=== PATIENT | male | born 1945 | race Caucasian/White ===

== ENCOUNTER 2017-06-17 14:45 | Inpatient (IN) | payer MEDICARE, BC ==
--- NOTE | 2017-06-17 14:54 | EDM.PDOC ---
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 Probable concomitant mild pulmonary hypertension and centralized CHF with mild to moderate left pleural effusion. No pneumothorax. Mild prominence of the proximal aortic arch and mild aortic valve calcification. Telephone consultation at 16:58 hours with the radiology department at [facility] with preliminary verbal report of CTA of the chest using PE protocol. No evidence of PE, however small bilateral pleural effusions, diffuse pulmonary infiltrates, etc. as above. CT Results Date: 06/17/17 CT Results Time: 16:58 Departure - Departure Time of Disposition: 17:15 Disposition: Admitted As Inpatient 66 Condition: Fair Clinical Impression: Dyslipidemia, Peptic reflux disease, D-dimer, elevated, Hypertension Pneumonia Qualifiers: Pneumonia type: due to unspecified organism Laterality: left Lung location: lower lobe of lung Qualified Code(s): J18.1 - Lobar pneumonia, unspecified organism Coronary artery disease Qualifiers: Coronary Disease-Associated Artery/Lesion type: [place] artery [place] vs. transplanted heart: [place] heart Associated angina: without angina Qualified Code(s): I25.10 - Atherosclerotic heart disease of [place] coronary artery without angina pectoris CHF (congestive heart failure) Qualifiers: Heart failure type: unspecified Heart failure chronicity: acute Qualified Code( s): I50.9 - Heart failure, unspecified COPD (chronic obstructive pulmonary disease) Qualifiers: COPD type: COPD with acute lower respiratory infection Qualified Code(s): J44.0 - Chronic obstructive pulmonary disease with acute lower respiratory infection Osteoarthritis Qualifiers: Osteoarthritis location: multiple joints Osteoarthritis type: primary Qualified Code(s): M15.0 - Primary generalized (osteo)arthritis Diabetes mellitus Qualifiers: Diabetes mellitus type: type 2 Diabetes mellitus complication status: with neurologic complications Diabetes mellitus complication detail: with polyneuropathy Diabetes mellitus intermediate school teacher insulin use: without intermediate school teacher use Qualified Code(s): E11.42 - Type 2 diabetes mellitus with diabetic polyneuropathy - Discharge Information - Problem List & Annotations (1) Pneumonia SNOMED Code(s): 634639702 Code(s): J18.9 - PNEUMONIA, UNSPECIFIED ORGANISM Status: Acute Priority: High Current Visit: Yes Onset Date: ~06/17/17 Annotation/Comment:: One- week history of bronchitic type symptoms as above. Significant left lower lobe pneumonia. Blood cultures 2 were collected in the emergency room. Obtain sputum specimen SAI..IV Cipro and IV Zithromax therapy initiated in the emergency room. Note O2 sat of only 78% at [facility] prior to transfer to our ER with O2 Sat of 85% on arrival. Qualifiers: Pneumonia type: due to unspecified organism Laterality: left Lung location: lower lobe of lung Qualified Code(s): J18.1 - Lobar pneumonia, unspecified organism (2) CHF (congestive heart failure) SNOMED Code(s): 77833571 Code(s): I50.9 - HEART FAILURE, UNSPECIFIED Status: Acute Priority: High Current Visit: Yes Onset Date: 06/17/17 Annotation/Comment:: Mild centralized CHF with left pleural effusion but no chest pain or anginal type symptoms. Lasix therapy initiated in the emergency room. Echocardiogram to be conducted tomorrow. No chest pain or anginal type symptoms with chest pain protocol not initiated in the emergency room. Cardiology consultation depending on his clinical course. Initiate lisinopril therapy shortly after admission. Qualifiers: Heart failure type: unspecified Heart failure chronicity: acute Qualified Code(s): I50.9 - Heart failure, unspecified (3) D-dimer, elevated SNOMED Code(s): 813423544 Code(s): R79.89 - OTHER SPECIFIED ABNORMAL FINDINGS OF BLOOD CHEMISTRY Status: Acute Priority: High Current Visit: Yes Onset Date: 06/17/17 Annotation/Comment:: CTA scan of the chest results as above. High-dose subcutaneous Lovenox initiated in the emergency room with venous Doppler studies to be conducted in this facility tomorrow secondary to significant d- dimer elevation. No direct clinical evidence of a DVT, etc. (4) COPD (chronic obstructive pulmonary disease) SNOMED Code(s): 04996669 Code(s): J44.9 - CHRONIC OBSTRUCTIVE PULMONARY DISEASE, UNSPECIFIED Status : Chronic Priority: Medium Current Visit: Yes Annotation/Comment:: Duoneb nebulizer treatment given in the emergency room. Patient does not have a nebulizer unit or inhalers at home with this to be initiated at time of discharge. Consider PFTs once his respiratory and cardiac status have stabilized Qualifiers: COPD type: COPD with acute lower respiratory infection Qualified Code(s): J44.0 - Chronic obstructive pulmonary disease with acute lower respiratory infection (5) Coronary artery disease SNOMED Code(s): 96284390 Code(s): I25.10 - ATHSCL HEART DISEASE OF [place] CORONARY ARTERY W/O ANG PCTRS Status: Chronic Priority: Medium Current Visit: Yes Annotation/ Comment:: as above. Note distant PTCA/stent. Consider further cardiac workup depending on his clinical course with previous negative Cardiolite stress test on 11/08/15 Qualifiers: Coronary Disease-Associated Artery/Lesion type: [place] artery [place] vs. transplanted heart: [place] heart Associated angina: without angina Qualified Code(s): I25.10 - Atherosclerotic heart disease of [place] coronary artery without angina pectoris (6) Diabetes mellitus SNOMED Code(s): 94542035 Code(s): E11.9 - TYPE 2 DIABETES MELLITUS WITHOUT COMPLICATIONS Status: Chronic Priority: Medium Current Visit: Yes Annotation/Comment:: Note history of diabetic nephropathy, proteinuria, and diabetic neuropathy. Glycosylated in hemoglobin in the a.m.. Specimen for urine microalbumin collected in the emergency room with initiation of lisinopril therapy as above. Qualifiers: Diabetes mellitus type: type 2 Diabetes mellitus complication status: with neurologic complications Diabetes mellitus complication detail: with polyneuropathy Diabetes mellitus senior living insulin use: without senior living use Qualified Code(s): E11.42 - Type 2 diabetes mellitus with diabetic polyneuropathy (7) Dyslipidemia SNOMED Code(s): 567988183 Code(s): E78.5 - HYPERLIPIDEMIA, UNSPECIFIED Status: Chronic Priority: Medium Current Visit: Yes Annotation/Comment:: Lipid panel in the a.m. Initiate statin therapy tomorrow after lipid panel has been obtained secondary to his history of coronary artery disease, diabetes,etc. (8) Osteoarthritis SNOMED Code(s): 201006579 Code(s): M19.90 - UNSPECIFIED OSTEOARTHRITIS, UNSPECIFIED SITE Status: Chronic Priority: Medium Current Visit: Yes Annotation/Comment:: stable by history Qualifiers: Osteoarthritis location: multiple joints Osteoarthritis type: primary Qualified Code(s): M15.0 - Primary generalized (osteo)arthritis (9) Peptic reflux disease SNOMED Code(s): 85061668 Code(s): K21.9 - GASTRO-ESOPHAGEAL REFLUX DISEASE WITHOUT ESOPHAGITIS Status: Chronic Priority: Medium Current Visit: Yes Annotation/Comment:: No history of abdominal pain, recent GI bleed, etc. High-dose IV Pepcid given as GI prophylaxis in the emergency room (10) Hypertension SNOMED Code(s): 94968386 Code(s): I10 - ESSENTIAL (PRIMARY) HYPERTENSION Status: Chronic Priority : Medium Current Visit: Yes Annotation/Comment:: Blood pressure somewhat elevated initially in the emergency room on arrival, although significant improvement at time of admission. Continue to observe closely during this hospitalization with initiation of IV Lasix and lisinopril therapy as above. Qualifiers: Hypertension type: essential hypertension Qualified Code(s): I10 - Essential (primary) hypertension - Problem List Review Problem List Initiated/Reviewed/Updated: Yes - My Orders Last 24 Hours: My Active Orders 06/17/17 15:00 Cardiac Monitoring [RC] CONTINUOUS Communication Order [RC] ROUTINE Oxygen Therapy, ED [RC] CONTINUOUS Pulse Oximetry [RC] CONTINUOUS Up With Assistance [RC] ASDIRECTED CULTURE SPUTUM + SMEAR [RM] Urgent Acetaminophen [Tylenol] 650 mg PO Q4H PRN Azithromycin [Zithromax] 500 mg Sodium Chloride 0.9% [Normal Saline] 250 ml IV Q24H Levofloxacin/Dextrose 5%-Water [Levaquin in D5W 500 MG/100 ML] 500 mg Premix Bag 1 bag IV Q24H Sodium Chloride 0.9% [Saline Flush] 10 ml FLUSH ASDIRECTED PRN Blood Culture x2 Reflex Set [OM.PC] Stat Obtain Past Medical Record [OM.PC] Stat Peripheral IV Insertion Adult [OM.PC] Stat Resuscitation Status Routine 06/17/17 15:02 EKG Documentation Completion [RC] ASDIRECTED Peripheral IV Care [RC] . DIRECTED 06/17/17 15:25 CULTURE BLOOD [BC] Stat 06/17/17 15:30 CULTURE BLOOD [BC] Stat 06/17/17 15:31 Chest PE [Ang Chest] [CT] Stat 06/17/17 16:00 Furosemide [Lasix] 40 mg IVPUSH Q8H 06/17/17 16:57 CULTURE URINE [RM] Routine 06/17/17 Breakfast Nothing Per Oral Diet [DIET] - Assessment/Plan Admission H&P: Please use this note as an admission H&P Last 24 Hours: My Active Orders 06/17/17 15:00 Cardiac Monitoring [RC] CONTINUOUS Communication Order [RC] ROUTINE Oxygen Therapy, ED [RC] CONTINUOUS Pulse Oximetry [RC] CONTINUOUS Up With Assistance [RC] ASDIRECTED CULTURE SPUTUM + SMEAR [RM] Urgent Acetaminophen [Tylenol] 650 mg PO Q4H PRN Azithromycin [Zithromax] 500 mg Sodium Chloride 0.9% [Normal Saline] 250 ml IV Q24H Levofloxacin/Dextrose 5%-Water [Levaquin in D5W 500 MG/100 ML] 500 mg Premix Bag 1 bag IV Q24H Sodium Chloride 0.9% [Saline Flush] 10 ml FLUSH ASDIRECTED PRN Blood Culture x2 Reflex Set [OM.PC] Stat Obtain Past Medical Record [OM.PC] Stat Peripheral IV Insertion Adult [OM.PC] Stat Resuscitation Status Routine 06/17/17 15:02 EKG Documentation Completion [RC] ASDIRECTED Peripheral IV Care [RC] . DIRECTED 06/17/17 15:25 CULTURE BLOOD [BC] Stat 06/17/17 15:30 CULTURE BLOOD [BC] Stat 06/17/17 15:31 Chest PE [Ang Chest] [CT] Stat 06/17/17 16:00 Furosemide [Lasix] 40 mg IVPUSH Q8H 06/17/17 16:57 CULTURE URINE [RM] Routine 06/17/17 Breakfast Nothing Per Oral Diet [DIET] Assessment:: as above Plan: as above. Extensive precautions were given to the patient, who is in agreement with the treatment plan. The patient will require about 3-4 days of inpatient/ acute care secondary to multiple health problems as above.
[2017-06-17] MEDS ORDERED: Albuterol/Ipratropium 3.0-0.5 MG/3 ML Neb Soln NEB ONE (15:00)
[2017-06-17] MEDS ORDERED: Acetaminophen 325 MG Tab PO PRN (15:00)
[2017-06-17] MEDS: Azithromycin 500 MG in Sodium Chloride 0.9% 250 ML IV SCH (15:15)
[2017-06-17] MEDS: Sodium Chloride 0.9% 10 ML Syringe FLUSH PRN ×3 (15:16→16:16)
[2017-06-17] MEDS: Levofloxacin/Dextrose 5%-Water 500 MG in Premix Bag 1 BAG IV SCH (15:47)
[2017-06-17] MEDS ORDERED: Iopamidol 755 Mg/ML 100 ML Bottle IVPUSH ONE (16:00)
[2017-06-17] MEDS: Furosemide 40 MG/4 ML VIAL IVPUSH SCH (16:15)
[2017-06-17] MEDS: Enoxaparin 100 MG/1 ML Syringe SUBCUT SCH (17:09)
[2017-06-17] MEDS ORDERED: Temazepam 15 MG Cap PO PRN (17:30)
[2017-06-17] MEDS ORDERED: Albuterol 0.083% 2.5 MG/3 ML Neb Soln INH PRN (17:34)
[2017-06-17] MEDS ORDERED: Albuterol/Ipratropium 3.0-0.5 MG/3 ML Neb Soln NEB PRN (17:34)
[2017-06-17] MEDS: metFORMIN 500 MG Tab PO SCH (18:32)
[2017-06-17] MEDS: Potassium Chloride 20 MEQ Tab.ER PO SCH (18:32)
[2017-06-17] MEDS: Dorzolamide/Timolol 2%-0.5% Ophth Soln 10 ML Bottle EYEBOTH SCH ×2 (18:33→18:37)
[2017-06-17] MEDS: Dextromethorphan/guaiFENesin 600-30 MG Tab.ER PO SCH (18:33)
[2017-06-17] MEDS: atorvaSTATin 40 MG Tab PO SCH (21:14)
[2017-06-17] MEDS: Albuterol/Ipratropium 3.0-0.5 MG/3 ML Neb Soln NEB SCH (21:15)
[2017-06-17] MEDS: Budesonide 0.5 MG/2 ML Neb Susp NEB SCH (21:15)
[2017-06-18] MEDS: Sodium Chloride 0.9% 10 ML Syringe FLUSH PRN ×4 (00:15→16:08)
[2017-06-18] MEDS: Furosemide 40 MG/4 ML VIAL IVPUSH SCH ×3 (00:16→16:06)
[2017-06-18] MEDS: Albuterol/Ipratropium 3.0-0.5 MG/3 ML Neb Soln NEB SCH ×4 (01:19→21:01)
[2017-06-18 08:07] LABS: CHLORIDE,CL 99 mmol/L (98-107); SODIUM,NA 137 mmol/L (136-145)
[2017-06-18] MEDS: metFORMIN 500 MG Tab PO SCH ×2 (08:55→17:48)
--- NOTE | 2017-06-18 09:00 | PCM.PN ---
- General Info Date of Service: 06/18/17 Admission Dx/Problem (Free Text): 1. Bilateral pneumonia 2. CHF 3. COPD Functional Status: Reports: Pain Controlled, Tolerating Diet (Tolerated diet yesterday evening), Ambulating, Urinating, New Symptoms, Incentive Spirometry Pain Score: 0 - Review of Systems General: Reports: No Symptoms, Fever (Maximum fever of 37.2 during last 24 hours with patient afebrile this morning). Denies: Weakness, Fatigue, Malaise, Chills, Night Sweats, Appetite (Appetite good) HEENT: Reports: No Symptoms. Denies: Ear Pain, Eye Pain, Headaches, Sinus Congestion, Sore Throat, Rhinitis, Visual Changes Pulmonary: Reports: Shortness of Breath (Improved), Cough, Sputum (Greenish), Wheezing (Improved). Denies: Pleuritic Chest Pain, Hemoptysis Cardiovascular: Reports: Dyspnea on Exertion, Edema (Stable dependent). Denies : Chest Pain, Palpitations, Orthopnea, PND, Lightheadedness Gastrointestinal: Reports: No Symptoms. Denies: Abdominal Pain, Constipation, Decreased Appetite, Diarrhea (Mildly loose bowel movement earlier this morning) , Difficulty Swallowing, Flatus, Hematochezia, Melena, Nausea, Vomiting Genitourinary: Reports: No Symptoms, Other (Normal UA on admission with urine culture pending). Denies: Dysuria, Frequency, Burning, Urgency, Incontinence, Hematuria, Retention, Flank Pain Musculoskeletal: Reports: Back Pain (Stable chronic low back pain from his hospital bed). Denies: Neck Pain, Shoulder Pain, Arm Pain, Leg Pain Skin: Reports: Bruising (Mild at Lovenox site). Denies: Diaphoresis, Pruritis, Rash Neurological: Reports: No Symptoms. Denies: Confusion, Dizziness, Headache, Numbness, Paresthesia, Tingling, Weakness Psychiatric: Reports: No Symptoms. Denies: Confusion, Depression, Anxiety, Agitation, Cravings, Hallucinations - Patient Data Vitals - Most Recent: Last Vital Signs Temp 36.6 C 06/18/17 08:00 Pulse 88 06/18/17 08:00 Resp 20 06/18/17 08:00 BP 122/77 06/18/17 08:00 Pulse Ox 91 L 06/18/17 08:00 Vital Signs - 24 hr 06/17/17 06/17/17 06/17/17 14:46 14:57 15:31 Temperature [ 36.4 C Oral] Pulse, 91 90 87 Peripheral [ Left Pulse Oximetry] Respiratory 20 20 16 Rate Blood Pressure 161/118 H 151/66 H 142/75 H [Right Upper Arm] O2 Sat by Pulse 84 L 96 96 Oximetry O2 Sat by Pulse 94 L Oximetry [ Nasal Cannula] 06/17/17 06/17/17 06/17/17 16:10 16:45 17:30 Temperature [ 37.2 C Oral] Pulse, 93 80 85 Peripheral [ Left Pulse Oximetry] Respiratory 20 16 20 Rate Blood Pressure 140/73 136/69 132/80 [Right Upper Arm] O2 Sat by Pulse 95 95 100 Oximetry O2 Sat by Pulse 99 Oximetry [ Nasal Cannula] 06/17/17 06/18/17 06/18/17 20:00 00:00 04:00 Temperature [ 36.8 C 37.2 C 37.0 C Oral] Pulse, 77 98 98 Peripheral [ Left Pulse Oximetry] Respiratory 16 20 20 Rate Blood Pressure 126/80 143/73 H 143/81 H [Right Upper Arm] O2 Sat by Pulse 93 L 93 L 93 L Oximetry O2 Sat by Pulse Oximetry [ Nasal Cannula] 06/18/17 08:00 Temperature [ 36.6 C Oral] Pulse, 88 Peripheral [ Left Pulse Oximetry] Respiratory 20 Rate Blood Pressure 122/77 [Right Upper Arm] O2 Sat by Pulse 91 L Oximetry O2 Sat by Pulse Oximetry [ Nasal Cannula] Weight - Most Recent: 141.974 kg I&O - Last 24 Hours: Intake & Output 06/17/17 06/18/17 06/18/17 22:59 06:59 14:59 Intake Total 150 Output Total 1850 Balance -1700 Imaging Impressions - Last 24 Hours: executive coordinator shows new atrial fibrillation with stable occasional uniform PVCs with average heart rate in the 80s Lab Results Last 24 Hours: Laboratory Results - last 24 hr 06/17/17 06/17/17 06/18/17 Range/Units 18:16 20:45 07:20 WBC 7.9 (4.0-10.2) K/uL RBC 4.96 (4.33-5.41) M/uL Hgb 14.4 (13.1-16.8) g/dL Hct 43.3 (39.0-49.0) % MCV 87.3 (84.0-98.0) fL MCH 29.0 (28.2-33.3) pg MCHC 33.3 (31.7-36.0) g/dL RDW 15.8 H (11.2-14.1) % Plt Count 173 (150-350) K/uL Neut % (Auto) 75.5 (45.0-80.0) % Lymph % (Auto) 15.7 (10.0-50.0) % [place] % (Auto) 7.9 (2.0-14.0) % Eos % (Auto) 0.8 (0.0-5.0) % Baso % (Auto) 0.1 (0.0-2.0) % Neut # (Auto) 5.96 (1.40-7.00) K/uL Lymph # (Auto) 1.24 (0.50-3.50) K/uL [place] # (Auto) 0.62 (0.00-1.00) K/uL Eos # (Auto) 0.06 (0.00-0.50) K/uL Baso # (Auto) 0.01 (0.00-0.20) K/uL D-Dimer, Quantitative (0-400) ng/mL Sodium (136-145) mmol/L Potassium (3.5-5.1) mmol/L Chloride (98-107) mmol/L Carbon Dioxide (21.0-32.0) mmol/L BUN (7-18) mg/dL Creatinine (0.51-1.17) mg/dL Est Cr Clr Drug Dosing mL/min Estimated GFR (MDRD) mL/min Glucose (74-106) mg/dL POC Glucose 98 (65-110) mg/dl Hemoglobin A1c (4.3-5.7) % Calcium (8.5-10.1) mg/dL Total Bilirubin (0.2-1.0) mg/dL AST (15-37) U/L ALT (12-78) U/L Alkaline Phosphatase (46-116) IU/L Creatine Kinase 50 (26-308) U/L Creatine Kinase Index 0.6 (0.0-2.5) % CK-MB (CK-2) 0.30 (0.00-3.60) ng/mL Troponin I 0.002 (0.000-0.056) ng/mL NT-Pro-B Natriuret Pep (0-125) pg/mL Total Protein (6.4-8.2) g/dL Albumin (3.4-5.0) g/dL Triglycerides (30-150) mg/dL Cholesterol (100-200) mg/dL LDL Cholesterol, Calc (0-100) mg/dL HDL Cholesterol (40-60) mg/dL 06/18/17 06/18/17 06/18/17 Range/Units 07:20 07:20 07:58 WBC (4.0-10.2) K/uL RBC (4.33-5.41) M/uL Hgb (13.1-16.8) g/dL Hct (39.0-49.0) % MCV (84.0-98.0) fL MCH (28.2-33.3) pg MCHC (31.7-36.0) g/dL RDW (11.2-14.1) % Plt Count (150-350) K/uL Neut % (Auto) (45.0-80.0) % Lymph % (Auto) (10.0-50.0) % [place] % (Auto) (2.0-14.0) % Eos % (Auto) (0.0-5.0) % Baso % (Auto) (0.0-2.0) % Neut # (Auto) (1.40-7.00) K/uL Lymph # (Auto) (0.50-3.50) K/uL [place] # (Auto) (0.00-1.00) K/uL Eos # (Auto) (0.00-0.50) K/uL Baso # (Auto) (0.00-0.20) K/uL D-Dimer, Quantitative 1550 H (0-400) ng/mL Sodium 137 (136-145) mmol/L Potassium 3.6 (3.5-5.1) mmol/L Chloride 99 (98-107) mmol/L Carbon Dioxide 24.6 (21.0-32.0) mmol/L BUN 11 (7-18) mg/dL Creatinine 0.93 (0.51-1.17) mg/dL Est Cr Clr Drug Dosing 79.96 mL/min Estimated GFR (MDRD) > 60 mL/min Glucose 149 H (74-106) mg/dL POC Glucose (65-110) mg/dl Hemoglobin A1c 7.4 H (4.3-5.7) % Calcium 8.7 (8.5-10.1) mg/dL Total Bilirubin 0.6 (0.2-1.0) mg/dL AST 17 (15-37) U/L ALT 16 (12-78) U/L Alkaline Phosphatase 73 (46-116) IU/L Creatine Kinase 46 (26-308) U/L Creatine Kinase Index 0.7 (0.0-2.5) % CK-MB (CK-2) 0.30 (0.00-3.60) ng/mL Troponin I 0.000 (0.000-0.056) ng/mL NT-Pro-B Natriuret Pep 324 H (0-125) pg/mL Total Protein 7.9 (6.4-8.2) g/dL Albumin 3.2 L (3.4-5.0) g/dL Triglycerides 83 (30-150) mg/dL Cholesterol 130 (100-200) mg/dL LDL Cholesterol, Calc 78 (0-100) mg/dL HDL Cholesterol 35 L (40-60) mg/dL Laboratory Tests 06/17/17 06/17/17 06/17/17 Range/Units 14:00 15:00 15:00 WBC (4.0-10.2) K/uL RBC (4.33-5.41) M/uL Hgb (13.1-16.8) g/dL Hct (39.0-49.0) % MCV (84.0-98.0) fL MCH (28.2-33.3) pg MCHC (31.7-36.0) g/dL RDW (11.2-14.1) % Plt Count (150-350) K/uL Neut % (Auto) (45.0-80.0) % Lymph % (Auto) (10.0-50.0) % Atlantic % (Auto) (2.0-14.0) % Eos % (Auto) (0.0-5.0) % Baso % (Auto) (0.0-2.0) % Neut # (Auto) (1.40-7.00) K/uL Lymph # (Auto) (0.50-3.50) K/uL [place] # (Auto) (0.00-1.00) K/uL Eos # (Auto) (0.00-0.50) K/uL Baso # (Auto) (0.00-0.20) K/uL D-Dimer, Quantitative 1870 H (0-400) ng/mL Sodium (136-145) mmol/L Potassium (3.5-5.1) mmol/L Chloride (98-107) mmol/L Carbon Dioxide (21.0-32.0) mmol/L BUN (7-18) mg/dL Creatinine (0.51-1.17) mg/dL Est Cr Clr Drug Dosing mL/min Estimated GFR (MDRD) mL/min Glucose (74-106) mg/dL POC Glucose (65-110) mg/dl Hemoglobin A1c (4.3-5.7) % Lactic Acid 1.5 (0.4-2.0) mmol/L Calcium (8.5-10.1) mg/dL Magnesium 2.0 (1.8-2.4) mg/dL Total Bilirubin 0.8 (0.2-1.0) mg/dL Direct Bilirubin 0.2 (0.0-0.2) mg/dL AST 18 (15-37) U/L ALT 16 (12-78) U/L Alkaline Phosphatase 80 (46-116) IU/L Creatine Kinase 42 (26-308) U/L Creatine Kinase Index 0.7 (0.0-2.5) % CK-MB (CK-2) 0.30 (0.00-3.60) ng/mL Troponin I 0.000 (0.000-0.056) ng/mL NT-Pro-B Natriuret Pep (0-125) pg/mL Total Protein 8.2 (6.4-8.2) g/dL Albumin 3.4 (3.4-5.0) g/dL Triglycerides (30-150) mg/dL Cholesterol (100-200) mg/dL LDL Cholesterol, Calc (0-100) mg/dL HDL Cholesterol (40-60) mg/dL TSH, Ultra Sensitive 2.830 (0.358-3.740) mIU/mL Specimen Type Urine Color Urine Appearance Urine pH (5.0-9.0) Ur Specific [place] (1.005-1.030) Urine Protein (NEGATIVE) mg/dL Urine Glucose (UA) (NEGATIVE) mg/dL Urine Ketones (NEGATIVE) mg/dL Urine Occult Blood (NEGATIVE) Urine Nitrite (NEGATIVE) Urine Bilirubin (NEGATIVE) Urine Urobilinogen (0.2-1.0) E.U./dL Ur Leukocyte Esterase (NEGATIVE) Urine RBC /HPF Urine WBC /HPF Ur Epithelial Cells /LPF Urine Bacteria (NONE TO FEW) /HPF Ur Random Microalbumin (NEGATIVE) mg/L 06/17/17 06/17/17 06/17/17 Range/Units 16:57 16:57 18:16 WBC (4.0-10.2) K/uL RBC (4.33-5.41) M/uL Hgb (13.1-16.8) g/dL Hct (39.0-49.0) % MCV (84.0-98.0) fL MCH (28.2-33.3) pg MCHC (31.7-36.0) g/dL RDW (11.2-14.1) % Plt Count (150-350) K/uL Neut % (Auto) (45.0-80.0) % Lymph % (Auto) (10.0-50.0) % [place] % (Auto) (2.0-14.0) % Eos % (Auto) (0.0-5.0) % Baso % (Auto) (0.0-2.0) % Neut # (Auto) (1.40-7.00) K/uL Lymph # (Auto) (0.50-3.50) K/uL [place] # (Auto) (0.00-1.00) K/uL Eos # (Auto) (0.00-0.50) K/uL Baso # (Auto) (0.00-0.20) K/uL D-Dimer, Quantitative (0-400) ng/mL Sodium (136-145) mmol/L Potassium (3.5-5.1) mmol/L Chloride (98-107) mmol/L Carbon Dioxide (21.0-32.0) mmol/L BUN (7-18) mg/dL Creatinine (0.51-1.17) mg/dL Est Cr Clr Drug Dosing mL/min Estimated GFR (MDRD) mL/min Glucose (74-106) mg/dL POC Glucose 98 (65-110) mg/dl Hemoglobin A1c (4.3-5.7) % Lactic Acid (0.4-2.0) mmol/L Calcium (8.5-10.1) mg/dL Magnesium (1.8-2.4) mg/dL Total Bilirubin (0.2-1.0) mg/dL Direct Bilirubin (0.0-0.2) mg/dL AST (15-37) U/L ALT (12-78) U/L Alkaline Phosphatase (46-116) IU/L Creatine Kinase (26-308) U/L Creatine Kinase Index (0.0-2.5) % CK-MB (CK-2) (0.00-3.60) ng/mL Troponin I (0.000-0.056) ng/mL NT-Pro-B Natriuret Pep (0-125) pg/mL Total Protein (6.4-8.2) g/dL Albumin (3.4-5.0) g/dL Triglycerides (30-150) mg/dL Cholesterol (100-200) mg/dL LDL Cholesterol, Calc (0-100) mg/dL HDL Cholesterol (40-60) mg/dL TSH, Ultra Sensitive (0.358-3.740) mIU/mL Specimen Type Urincc Urine Color Yellow Urine Appearance Clear Urine pH 5.5 (5.0-9.0) Ur Specific [place] <= 1.005 (1.005-1.030) Urine Protein Negative (NEGATIVE) mg/dL Urine Glucose (UA) Negative (NEGATIVE) mg/dL Urine Ketones Negative (NEGATIVE) mg/dL Urine Occult Blood Negative (NEGATIVE) Urine Nitrite Negative (NEGATIVE) Urine Bilirubin Negative (NEGATIVE) Urine Urobilinogen 0.2 (0.2-1.0) E.U./dL Ur Leukocyte Esterase Negative (NEGATIVE) Urine RBC Not seen /HPF Urine WBC 0-5 /HPF Ur Epithelial Cells Not seen /LPF Urine Bacteria Not seen (NONE TO FEW) /HPF Ur Random Microalbumin 20 (NEGATIVE) mg/L 06/17/17 06/18/17 06/18/17 Range/Units 20:45 07:20 07:20 WBC 7.9 (4.0-10.2) K/uL RBC 4.96 (4.33-5.41) M/uL Hgb 14.4 (13.1-16.8) g/dL Hct 43.3 (39.0-49.0) % MCV 87.3 (84.0-98.0) fL MCH 29.0 (28.2-33.3) pg MCHC 33.3 (31.7-36.0) g/dL RDW 15.8 H (11.2-14.1) % Plt Count 173 (150-350) K/uL Neut % (Auto) 75.5 (45.0-80.0) % Lymph % (Auto) 15.7 (10.0-50.0) % Atlantic % (Auto) 7.9 (2.0-14.0) % Eos % (Auto) 0.8 (0.0-5.0) % Baso % (Auto) 0.1 (0.0-2.0) % Neut # (Auto) 5.96 (1.40-7.00) K/uL Lymph # (Auto) 1.24 (0.50-3.50) K/uL [place] # (Auto) 0.62 (0.00-1.00) K/uL Eos # (Auto) 0.06 (0.00-0.50) K/uL Baso # (Auto) 0.01 (0.00-0.20) K/uL D-Dimer, Quantitative 1550 H (0-400) ng/mL Sodium (136-145) mmol/L Potassium (3.5-5.1) mmol/L Chloride (98-107) mmol/L Carbon Dioxide (21.0-32.0) mmol/L BUN (7-18) mg/dL Creatinine (0.51-1.17) mg/dL Est Cr Clr Drug Dosing mL/min Estimated GFR (MDRD) mL/min Glucose (74-106) mg/dL POC Glucose (65-110) mg/dl Hemoglobin A1c (4.3-5.7) % Lactic Acid (0.4-2.0) mmol/L Calcium (8.5-10.1) mg/dL Magnesium (1.8-2.4) mg/dL Total Bilirubin (0.2-1.0) mg/dL Direct Bilirubin (0.0-0.2) mg/dL AST (15-37) U/L ALT (12-78) U/L Alkaline Phosphatase (46-116) IU/L Creatine Kinase 50 (26-308) U/L Creatine Kinase Index 0.6 (0.0-2.5) % CK-MB (CK-2) 0.30 (0.00-3.60) ng/mL Troponin I 0.002 (0.000-0.056) ng/mL NT-Pro-B Natriuret Pep (0-125) pg/mL Total Protein (6.4-8.2) g/dL Albumin (3.4-5.0) g/dL Triglycerides (30-150) mg/dL Cholesterol (100-200) mg/dL LDL Cholesterol, Calc (0-100) mg/dL HDL Cholesterol (40-60) mg/dL TSH, Ultra Sensitive (0.358-3.740) mIU/mL Specimen Type Urine Color Urine Appearance Urine pH (5.0-9.0) Ur Specific [place] (1.005-1.030) Urine Protein (NEGATIVE) mg/dL Urine Glucose (UA) (NEGATIVE) mg/dL Urine Ketones (NEGATIVE) mg/dL Urine Occult Blood (NEGATIVE) Urine Nitrite (NEGATIVE) Urine Bilirubin (NEGATIVE) Urine Urobilinogen (0.2-1.0) E.U./dL Ur Leukocyte Esterase (NEGATIVE) Urine RBC /HPF Urine WBC /HPF Ur Epithelial Cells /LPF Urine Bacteria (NONE TO FEW) /HPF Ur Random Microalbumin (NEGATIVE) mg/L 06/18/17 06/18/17 Range/Units 07:20 07:58 WBC (4.0-10.2) K/uL RBC (4.33-5.41) M/uL Hgb (13.1-16.8) g/dL Hct (39.0-49.0) % MCV (84.0-98.0) fL MCH (28.2-33.3) pg MCHC (31.7-36.0) g/dL RDW (11.2-14.1) % Plt Count (150-350) K/uL Neut % (Auto) (45.0-80.0) % Lymph % (Auto) (10.0-50.0) % Atlantic % (Auto) (2.0-14.0) % Eos % (Auto) (0.0-5.0) % Baso % (Auto) (0.0-2.0) % Neut # (Auto) (1.40-7.00) K/uL Lymph # (Auto) (0.50-3.50) K/uL [place] # (Auto) (0.00-1.00) K/uL Eos # (Auto) (0.00-0.50) K/uL Baso # (Auto) (0.00-0.20) K/uL D-Dimer, Quantitative (0-400) ng/mL Sodium 137 (136-145) mmol/L Potassium 3.6 (3.5-5.1) mmol/L Chloride 99 (98-107) mmol/L Carbon Dioxide 24.6 (21.0-32.0) mmol/L BUN 11 (7-18) mg/dL Creatinine 0.93 (0.51-1.17) mg/dL Est Cr Clr Drug Dosing 79.96 mL/min Estimated GFR (MDRD) > 60 mL/min Glucose 149 H (74-106) mg/dL POC Glucose (65-110) mg/dl Hemoglobin A1c 7.4 H (4.3-5.7) % Lactic Acid (0.4-2.0) mmol/L Calcium 8.7 (8.5-10.1) mg/dL Magnesium (1.8-2.4) mg/dL Total Bilirubin 0.6 (0.2-1.0) mg/dL Direct Bilirubin (0.0-0.2) mg/dL AST 17 (15-37) U/L ALT 16 (12-78) U/L Alkaline Phosphatase 73 (46-116) IU/L Creatine Kinase 46 (26-308) U/L Creatine Kinase Index 0.7 (0.0-2.5) % CK-MB (CK-2) 0.30 (0.00-3.60) ng/mL Troponin I 0.000 (0.000-0.056) ng/mL NT-Pro-B Natriuret Pep 324 H (0-125) pg/mL Total Protein 7.9 (6.4-8.2) g/dL Albumin 3.2 L (3.4-5.0) g/dL Triglycerides 83 (30-150) mg/dL Cholesterol 130 (100-200) mg/dL LDL Cholesterol, Calc 78 (0-100) mg/dL HDL Cholesterol 35 L (40-60) mg/dL TSH, Ultra Sensitive (0.358-3.740) mIU/mL Specimen Type Urine Color Urine Appearance Urine pH (5.0-9.0) Ur Specific [place] (1.005-1.030) Urine Protein (NEGATIVE) mg/dL Urine Glucose (UA) (NEGATIVE) mg/dL Urine Ketones (NEGATIVE) mg/dL Urine Occult Blood (NEGATIVE) Urine Nitrite (NEGATIVE) Urine Bilirubin (NEGATIVE) Urine Urobilinogen (0.2-1.0) E.U./dL Ur Leukocyte Esterase (NEGATIVE) Urine RBC /HPF Urine WBC /HPF Ur Epithelial Cells /LPF Urine Bacteria (NONE TO FEW) /HPF Ur Random Microalbumin (NEGATIVE) mg/L Noe Results Last 24 Hours: Blood cultures 2 pending Sputum for culture and sensitivity pending Med Orders - Current: Current Medications Acetaminophen (Tylenol) 650 mg PO Q4H PRN PRN Reason: Pain/Fever Albuterol (Proventil Neb Soln) 2.5 mg INH Q2H PRN PRN Reason: SHORTNESS OF BREATH Albuterol/Ipratropium (Duoneb 3.0-0.5 Mg/3 Ml) 3 ml NEB Q4HRRT PRN PRN Reason: Dyspnea Albuterol/Ipratropium (Duoneb 3.0-0.5 Mg/3 Ml) 3 ml NEB Q6HRRT [facility] Last Admin: 06/18/17 01:19 Dose: 3 ml Amlodipine Besylate (Norvasc) 10 mg PO DAILY [facility] Aspirin (Aspirin) 325 mg PO DAILY [facility] Atorvastatin Calcium (Lipitor) 40 mg PO BEDTIME [facility] Last Admin: 06/17/17 21:14 Dose: 40 mg Budesonide (Pulmicort) 0.5 mg NEB BIDRT [facility] Last Admin: 06/17/17 21:15 Dose: 0.5 mg Clopidogrel Bisulfate (Plavix) 75 mg PO DAILY [facility] Dorzolamide/Timolol (Cosopt 2%-0.5% Ophth Soln) 0 ml EYEBOTH BID [facility] Last Admin: 06/17/17 18:37 Dose: Not Given Enoxaparin Sodium (Lovenox) 100 mg SUBCUT Q24H [facility] Last Admin: 06/17/17 17:09 Dose: 100 mg Finasteride (Proscar) 5 mg PO DAILY [facility] Furosemide (Lasix) 40 mg IVPUSH Q8H [facility] Last Admin: 06/18/17 00:16 Dose: 40 mg Glimepiride (Amaryl) 2 mg PO WITHBREAKFAST [facility] Glimepiride (Amaryl) 4 mg PO DAILY@1800 [facility] Guaifenesin/Dextromethorphan (Mucinex Dm Er 600-30 Mg) 1 tab PO BID [facility] Last Admin: 06/17/17 18:33 Dose: 1 tab Azithromycin 500 mg/ Sodium (Chloride) 250 mls @ 250 mls/hr IV Q24H [facility] Last Admin: 06/17/17 15:15 Dose: 250 mls/hr Levofloxacin/Dextrose 500 mg/ (Premix) 100 mls @ 100 mls/hr IV Q24H [facility] Last Admin: 06/17/17 15:47 Dose: 100 mls/hr Metformin HCl (Glucophage) 500 mg PO BIDMEALS [facility] Last Admin: 06/17/17 18:32 Dose: 500 mg Mirabegron (Myrbetriq) 25 mg PO DAILY [facility] Non-Formulary Medication (Tafluprost/Pf [Zioptan 0.0015% Eye Drops]) 1 drop EYEBOTH BEDTIME [facility] Pioglitazone HCl (Actos) 45 mg PO DAILY [facility] Potassium Chloride (Klor-Con M20) 20 meq PO TID [facility] Last Admin: 06/17/17 18:32 Dose: 20 meq Quinapril HCl (Accupril) 40 mg PO DAILY [facility] Sodium Chloride (Saline Flush) 10 ml FLUSH ASDIRECTED PRN PRN Reason: Keep Vein Open Last Admin: 06/18/17 00:15 Dose: 10 ml Sodium Chloride (Saline Flush) 10 ml FLUSH Q12HR PRN PRN Reason: Keep Vein Open Tamsulosin HCl (Flomax) 0.4 mg PO DAILY [facility] Temazepam (Restoril) 15 mg PO BEDTIME PRN PRN Reason: Insomnia Discontinued Medications Albuterol/Ipratropium (Duoneb 3.0-0.5 Mg/3 Ml) 3 ml NEB ONETIME ONE Stop: 06/17/17 15:01 Last Admin: 06/17/17 15:11 Dose: 3 ml Iopamidol (Isovue-370 (76%)) 100 ml IVPUSH ONETIME ONE Stop: 06/17/17 16:01 Last Admin: 06/17/17 16:04 Dose: 100 ml - Exam Quality Assessment: Supplemental Oxygen, DVT Prophylaxis (Lovenox). No: Central Line/PICC, Urine Catheter, Skin Breakdown, Restraints General: Alert, Oriented, Cooperative, No Acute Distress HEENT: Pupils Equal, Pupils Reactive, EOMI, Mucous Membr. Moist/[place], Other ( Stable moderate bilateral exophthalmos). No: Scleral Icterus Neck: Supple, Trachea Midline, No JVD, No Thyromegaly, Carotid Bruit (Mild bilateral carotid bruits). No: Thyromegaly Lungs: Decreased Breath Sounds (Left base), Rales (Moderate diffuse bilateral somewhat improved from last evaluation). No: Rhonchi, Rub, Wheezing Cardiovascular: No Murmurs, Irregular Rhythm. No: Gallops, Rubs GI/Abdominal Exam: Normal Bowel Sounds, Soft, Non-Tender, No Organomegaly, No Distention, No Abnormal Bruit, No Mass, Other (Obese, stable 12 centimeter nonincarcerated umbilical hernia). No: Guarding (Male) Exam: Deferred Back Exam: Normal Inspection, Full Range of Motion. No: CVA Tenderness (L), CVA Tenderness (R), Muscle Spasm Extremities: Normal Range of Motion, Non-Tender, Normal Capillary Refill, Pedal Edema (Stable trace +1 bilateral pedal/pretibial edema). No: Flora's Sign Peripheral Pulses: 1+: Dorsalis Pedis (L), Dorsalis Pedis (R), 2+: Radial (L), Radial (R) Skin: Warm, Dry, Intact, Ecchymosis (Mild at Lovenox injection sites). No: Rash Neurological: No New Focal Deficit, Other (No clinical orthostasis) Psy/Mental Status: Alert, Normal Affect, Normal Mood. No: Agitated, Hallucinations, Withdrawal Symptoms EKG INTERPRETATION EKG Date: 06/18/17 Time: 07:28 Rhythm: A-Fib (New atrial fibrillation with resolution of previous first degree AV block and stable occasional PVCs) [place]: Normal (Neutral cardiac axis) P-Wave: Variable (With extreme poor R-wave progression in the anterior leads) QRS: RBBB (QRS interval of 0.12 seconds representing a complete right bundle branch block with T-wave inversion in lead V1) ST-T: Normal QT: Normal NC/PQ Interval: Not applicable Comparison: Change From Previous EKG (As above since 06/17/17) EKG Interpretation Comments: 1. No acute ischemic changes 2. Newly diagnosed atrial fibrillation 3. Complete right bundle branch block 4. History of first-degree AV block - Problem List & Annotations (1) Pneumonia SNOMED Code(s): 694859465 Code(s): J18.9 - PNEUMONIA, UNSPECIFIED ORGANISM Status: Acute Priority: High Current Visit: Yes Onset Date: ~06/17/17 Qualifiers: Pneumonia type: due to unspecified organism Laterality: left Lung location: lower lobe of lung Qualified Code(s): J18.1 - Lobar pneumonia, unspecified organism Annotation/Comment:: Symptoms significantly improved today by patient history. Continue aggressive triple nebulizer therapy, IV Cipro, IV Zithromax, etc. Sputum has been obtained with results pending. Blood cultures 2 collected in the emergency room. Previous one-week history of bronchitic type symptoms as per emergency room note. Significant left lower lobe pneumonia by chest x-ray with CT scan indicating diffuse bilateral pneumonia as per emergency room note. [facility] physician assumes care in the a.m. Anticipate an additional 23 days of required inpatient care. Chest x-ray to be repeated prior to discharge. (2) CHF (congestive heart failure) SNOMED Code(s): 25017625 Code(s): I50.9 - HEART FAILURE, UNSPECIFIED Status: Acute Priority: High Current Visit: Yes Onset Date: 06/17/17 Qualifiers: Heart failure type: unspecified Heart failure chronicity: acute Qualified Code(s): I50.9 - Heart failure, unspecified Annotation/Comment:: Mild centralized CHF with left pleural effusion but no chest pain or anginal type symptoms on admission. Lasix therapy initiated in the emergency room and will be continued during this hospitalization. Echocardiogram to be conducted later today. Cardiology consultation depending on his clinical course. Patient is already on Accupril. (3) D-dimer, elevated SNOMED Code(s): 861232084 Code(s): R79.89 - OTHER SPECIFIED ABNORMAL FINDINGS OF BLOOD CHEMISTRY Status: Acute Priority: High Current Visit: Yes Onset Date: 06/17/17 Annotation/Comment:: CTA scan of the chest results as per emergency room note. above. High-dose subcutaneous Lovenox initiated in the emergency room with venous Doppler studies to be conducted in this facility later today secondary to significant d-dimer elevation. No direct clinical evidence of a DVT, etc.. Consider initiation of Coumadin therapy secondary to newly diagnosed atrial fibrillation as below, however await venous Doppler study results prior to initiating this therapy. (4) COPD (chronic obstructive pulmonary disease) SNOMED Code(s): 32830203 Code(s): J44.9 - CHRONIC OBSTRUCTIVE PULMONARY DISEASE, UNSPECIFIED Status : Chronic Priority: Medium Current Visit: Yes Qualifiers: COPD type: COPD with acute lower respiratory infection Qualified Code(s): J44.0 - Chronic obstructive pulmonary disease with acute lower respiratory infection Annotation/Comment:: Continue medical therapy as above. Duoneb nebulizer treatment given in the emergency room. Patient does not have a nebulizer unit or inhalers at home with this to be initiated at time of discharge. Consider PFTs once his respiratory and cardiac status have stabilized (5) Coronary artery disease SNOMED Code(s): 89952062 Code(s): I25.10 - ATHSCL HEART DISEASE OF [place] CORONARY ARTERY W/O ANG PCTRS Status: Chronic Priority: Medium Current Visit: Yes Qualifiers: Coronary Disease-Associated Artery/Lesion type: [place] artery [place] vs. transplanted heart: [place] heart Associated angina: without angina Qualified Code(s): I25.10 - Atherosclerotic heart disease of [place] coronary artery without angina pectoris Annotation/Comment:: as above. Note distant PTCA/stent. Consider further cardiac workup depending on his clinical course with previous negative Cardiolite stress test on 11/08/15 (6) Diabetes mellitus SNOMED Code(s): 76538131 Code(s): E11.9 - TYPE 2 DIABETES MELLITUS WITHOUT COMPLICATIONS Status: Chronic Priority: Medium Current Visit: Yes Qualifiers: Diabetes mellitus type: type 2 Diabetes mellitus complication status: with neurologic complications Diabetes mellitus complication detail: with polyneuropathy Diabetes mellitus penitentiary insulin use: without extermination inspector use Qualified Code(s): E11.42 - Type 2 diabetes mellitus with diabetic polyneuropathy Annotation/Comment:: Note history of diabetic nephropathy, proteinuria, and diabetic neuropathy. Glycosylated in hemoglobin this morning of 7.4% with mildly elevated fasting glucose this morning. Specimen for urine microalbumin collected yesterday shows only mild microalbuminemia and continue Accupril therapy. No significant renal insufficiency this morning. (7) Dyslipidemia SNOMED Code(s): 033563394 Code(s): E78.5 - HYPERLIPIDEMIA, UNSPECIFIED Status: Chronic Priority: Medium Current Visit: Yes Annotation/Comment:: Lipid panel this morning does show stable dyslipidemia, including decreased HDL. Continue current statin therapy. Strict ADA, low-fat, low-cholesterol diet encouraged with additional fluid restrictions and diverticulosis regimen. Weight loss in moderation also advisable. (8) Osteoarthritis SNOMED Code(s): 742098058 Code(s): M19.90 - UNSPECIFIED OSTEOARTHRITIS, UNSPECIFIED SITE Status: Chronic Priority: Medium Current Visit: Yes Qualifiers: Osteoarthritis location: multiple joints Osteoarthritis type: primary Qualified Code(s): M15.0 - Primary generalized (osteo)arthritis Annotation/Comment:: stable by history (9) Peptic reflux disease SNOMED Code(s): 93288338 Code(s): K21.9 - GASTRO-ESOPHAGEAL REFLUX DISEASE WITHOUT ESOPHAGITIS Status: Chronic Priority: Medium Current Visit: Yes Annotation/Comment:: No history of abdominal pain, recent GI bleed, etc. High-dose IV Pepcid given as GI prophylaxis in the emergency room (10) Hypertension SNOMED Code(s): 65542014 Code(s): I10 - ESSENTIAL (PRIMARY) HYPERTENSION Status: Chronic Priority : Medium Current Visit: Yes Qualifiers: Hypertension type: essential hypertension Qualified Code(s): I10 - Essential (primary) hypertension Annotation/Comment:: Blood pressures stable during admission. Note that Blood pressure was somewhat elevated initially in the emergency room on arrival, although significant improvement at time of admission. Continue to observe closely during this hospitalization with initiation of IV Lasix therapy as above. (11) Atrial fibrillation SNOMED Code(s): 56190217 Code(s): I48.91 - UNSPECIFIED ATRIAL FIBRILLATION Status: Acute Priority : High Current Visit: Yes Onset Date: 06/18/17 Qualifiers: Atrial fibrillation type: persistent Qualified Code(s): I48.1 - Persistent atrial fibrillation Annotation/Comment:: Newly diagnosed atrial fibrillation by today's EKG. Note noisy baseline in yesterday's EKG with possible borderline threatening atrial fibrillation at that time. Initiate Coumadin therapy as above. Note previous history of PVCs, first-degree AV block, etc. as per emergency room note. - Problem List Review Problem List Initiated/Reviewed/Updated: Yes - My Orders Last 24 Hours: My Active Orders 06/17/17 17:15 Enoxaparin [Lovenox] 100 mg SUBCUT Q24H 06/17/17 17:30 Antiembolic Devices [RC] .Routine Antiembolic Devices [RC] 08,20 Communication Order [RC] ROUTINE Height and Weight [RC] DAILY Intake and Output Strict [RC] ASDIRECTED Oxygen Therapy [RC] 2300 Pulse Oximetry [RC] ASDIRECTED Up With Assistance [RC] BID Vaccines to be Administered [RC] PER UNIT ROUTINE Sodium Chloride 0.9% [Saline Flush] 10 ml FLUSH Q12HR PRN Temazepam [Restoril] 15 mg PO BEDTIME PRN metFORMIN [Glucophage] 500 mg PO BIDMEALS Antiembolic Hose [OM.PC] Routine CHF Questionnaire [COMM] Routine DVT/VTE Prophylaxis Reflex [OM.PC] Routine GM Immunization Reflex [OM.PC] Click To Edit 06/17/17 17:34 RT Aerosol Therapy [RC] ASDIRECTED Albuterol [Proventil Neb Soln] 2.5 mg INH Q2H PRN Albuterol/Ipratropium [DuoNeb 3.0-0.5 MG/3 ML] 3 ml NEB Q4HRRT PRN 06/17/17 17:35 RT Aerosol Therapy [RC] Q6H 06/17/17 18:00 Dextromethorphan/guaiFENesin [Mucinex DM ER 600-30 MG] 1 tab PO BID Dorzolamide/Timolol [Cosopt 2%-0.5% Ophth Soln] 0 ml EYEBOTH BID Potassium Chloride [Klor-Con M20] 20 meq PO TID 06/17/17 20:00 Albuterol/Ipratropium [DuoNeb 3.0-0.5 MG/3 ML] 3 ml NEB Q6HRRT Budesonide [Pulmicort] 0.5 mg NEB BIDRT Tafluprost/Pf [Zioptan 0.0015% Eye Drops] 1 drop EYEBOTH BEDTIME atorvaSTATin [Lipitor] 40 mg PO BEDTIME 06/17/17 23:14 H PYLORI STOOL ANTIGEN [MREF] ONETIME OCCULT BLOOD DIAGNOSTIC [OP] Stat 06/18/17 05:11 EKG Documentation Completion [RC] ASDIRECTED Echo Comp wo Cont [US] Urgent Venous Doppler Lwr Ext Bi [US] Urgent 06/18/17 08:00 Aspirin 325 mg PO DAILY Clopidogrel [Plavix] 75 mg PO DAILY Finasteride [Proscar] 5 mg PO DAILY Glimepiride [Amaryl] 2 mg PO WITHBREAKFAST Mirabegron [Myrbetriq] 25 mg PO DAILY Pioglitazone [Actos] 45 mg PO DAILY Quinapril [Accupril] 40 mg PO DAILY Tamsulosin [Flomax] 0.4 mg PO DAILY amLODIPine [Norvasc] 10 mg PO DAILY 06/18/17 08:45 Vital Signs [RC] Q6HR 06/18/17 08:56 EKG Documentation Completion [RC] ASDIRECTED 06/18/17 18:00 Glimepiride [Amaryl] 4 mg PO DAILY@1800 06/18/17 Breakfast Fluid Restriction [DIET] 06/19/17 05:11 EKG Documentation Completion [RC] ASDIRECTED BASIC METABOLIC PANEL,BMP [CHEM] Routine CK W CKMB [CHEM] Routine PRO B-TYPE NATRIUR PEPT,BNPPRO [CHEM] Routine TROPONIN I [CHEM] Routine EKG 12 Lead [EK] Routine - Assessment Assessment:: As above - Plan Plan:: As above. Extensive precautions were given to the patient, who is in agreement with the treatment plan.
[2017-06-18] MEDS: Aspirin 325 MG Tab PO SCH (09:04)
[2017-06-18] MEDS: Glimepiride 2 MG Tab PO SCH (09:04)
[2017-06-18] MEDS: Tamsulosin 0.4 MG Cap.ER PO SCH (09:07)
[2017-06-18] MEDS: Potassium Chloride 20 MEQ Tab.ER PO SCH ×3 (09:07→17:44)
[2017-06-18] MEDS: Dextromethorphan/guaiFENesin 600-30 MG Tab.ER PO SCH ×2 (09:08→17:45)
[2017-06-18] MEDS: Mirabegron 25 MG Tab Extended Release PO SCH (09:09)
[2017-06-18] MEDS: amLODIPine 5 MG Tab PO SCH (09:10)
[2017-06-18] MEDS: Clopidogrel 75 MG Tab PO SCH (09:12)
[2017-06-18] MEDS: Finasteride 5 MG Tab PO SCH (09:13)
[2017-06-18] MEDS: Budesonide 0.5 MG/2 ML Neb Susp NEB SCH ×2 (09:40→21:01)
[2017-06-18] MEDS: Dorzolamide/Timolol 2%-0.5% Ophth Soln 10 ML Bottle EYEBOTH SCH ×2 (09:40→17:43)
[2017-06-18] MEDS: Tafluprost/Pf [Zioptan 0.0015% Eye Drops] EYEBOTH SCH ×2 (12:28→21:17)
[2017-06-18] MEDS: Azithromycin 500 MG in Sodium Chloride 0.9% 250 ML IV SCH (14:22)
[2017-06-18] MEDS: Levofloxacin/Dextrose 5%-Water 500 MG in Premix Bag 1 BAG IV SCH (15:58)
[2017-06-18] MEDS: Enoxaparin 100 MG/1 ML Syringe SUBCUT SCH (17:40)
[2017-06-18] MEDS: Insuln Aspart Prot/Insulin Aspart 100 Units/ML 3 ML FlexPen SUBCUT SCH (17:42)
[2017-06-18] MEDS ORDERED: Warfarin 5 MG Tab PO ONE (17:53)
[2017-06-18] MEDS ORDERED: Glimepiride 2 MG Tab PO SCH (18:00)
[2017-06-18] MEDS: atorvaSTATin 40 MG Tab PO SCH (21:01)
[2017-06-19] MEDS: Sodium Chloride 0.9% 10 ML Syringe FLUSH PRN ×6 (01:16→17:23)
[2017-06-19] MEDS: Furosemide 40 MG/4 ML VIAL IVPUSH SCH ×3 (01:16→17:13)
[2017-06-19] MEDS: Albuterol/Ipratropium 3.0-0.5 MG/3 ML Neb Soln NEB SCH ×4 (01:55→19:25)
[2017-06-19 07:39] LABS: CHLORIDE,CL 101 mmol/L (98-107); SODIUM,NA 137 mmol/L (136-145)
[2017-06-19] MEDS: Insuln Aspart Prot/Insulin Aspart 100 Units/ML 3 ML FlexPen SUBCUT SCH ×2 (07:58→16:57)
[2017-06-19] MEDS: metFORMIN 500 MG Tab PO SCH ×2 (07:58→11:41)
[2017-06-19] MEDS: Aspirin 325 MG Tab PO SCH (07:59)
[2017-06-19] MEDS: Dextromethorphan/guaiFENesin 600-30 MG Tab.ER PO SCH ×2 (08:00→17:13)
[2017-06-19] MEDS: Mirabegron 25 MG Tab Extended Release PO SCH (08:00)
[2017-06-19] MEDS: Tamsulosin 0.4 MG Cap.ER PO SCH (08:01)
[2017-06-19] MEDS: Dorzolamide/Timolol 2%-0.5% Ophth Soln 10 ML Bottle EYEBOTH SCH ×2 (08:01→17:12)
[2017-06-19] MEDS: Potassium Chloride 20 MEQ Tab.ER PO SCH ×3 (08:01→17:13)
[2017-06-19] MEDS: Finasteride 5 MG Tab PO SCH (08:01)
[2017-06-19] MEDS: Clopidogrel 75 MG Tab PO SCH (08:01)
[2017-06-19] MEDS: Budesonide 0.5 MG/2 ML Neb Susp NEB SCH ×2 (08:01→19:25)
[2017-06-19] MEDS: amLODIPine 5 MG Tab PO SCH (08:01)
[2017-06-19] MEDS: Glimepiride 2 MG Tab PO SCH (11:41)
[2017-06-19] MEDS ORDERED: metFORMIN 500 MG Tab.ER PO SCH (13:00)
--- NOTE | 2017-06-19 13:34 | PCM.PN ---
- General Info Date of Service: 06/19/17 Admission Dx/Problem (Free Text): 1. Bilateral pneumonia 2. CHF 3. COPD Subjective Update: Overall patient feels better. Would like to go home tomorrow. Cough much improved. Functional Status: Reports: Pain Controlled, Tolerating Diet, Ambulating, Urinating, Incentive Spirometry. Denies: New Symptoms - Review of Systems General: Reports: No Symptoms HEENT: Reports: No Symptoms Pulmonary: Reports: Shortness of Breath (with activity, improved), Cough, Sputum. Denies: Pleuritic Chest Pain, Hemoptysis, Wheezing Cardiovascular: Reports: Dyspnea on Exertion. Denies: Chest Pain, Palpitations , Edema, Lightheadedness Gastrointestinal: Reports: Diarrhea (improving). Denies: Abdominal Pain, Hematochezia Genitourinary: Reports: No Symptoms Musculoskeletal: Reports: No Symptoms Skin: Reports: No Symptoms Neurological: Reports: No Symptoms Psychiatric: Reports: No Symptoms - Patient Data Vitals - Most Recent: Last Vital Signs Temp 36.6 C 06/19/17 12:00 Pulse 67 06/19/17 12:00 Resp 20 06/19/17 12:00 BP 100/56 L 06/19/17 12:00 Pulse Ox 95 06/19/17 12:00 Weight - Most Recent: 144.968 kg I&O - Last 24 Hours: Intake & Output 06/18/17 06/19/17 06/19/17 22:59 06:59 14:59 Intake Total 109 969 2884 Output Total 200 900 Balance -20 -300 1500 Lab Results Last 24 Hours: Laboratory Results - last 24 hr 06/18/17 06/18/17 06/19/17 Range/Units 16:29 17:39 06:40 PT (9.8-11.7) SEC INR Sodium 137 (136-145) mmol/L Potassium 3.8 (3.5-5.1) mmol/L Chloride 101 (98-107) mmol/L Carbon Dioxide 25.5 (21.0-32.0) mmol/L BUN 21 H (7-18) mg/dL Creatinine 1.12 (0.51-1.17) mg/dL Est Cr Clr Drug Dosing 66.49 mL/min Estimated GFR (MDRD) > 60 mL/min Glucose 50 L (74-106) mg/dL POC Glucose 64 L 82 (65-110) mg/dl Calcium 9.2 (8.5-10.1) mg/dL Creatine Kinase 52 (26-308) U/L Creatine Kinase Index 1.3 (0.0-2.5) % CK-MB (CK-2) 0.70 (0.00-3.60) ng/mL Troponin I 0.022 (0.000-0.056) ng/mL NT-Pro-B Natriuret Pep 197 H (0-125) pg/mL 06/19/17 06/19/17 Range/Units 06:40 07:32 PT 10.9 (9.8-11.7) SEC INR 1.0 Sodium (136-145) mmol/L Potassium (3.5-5.1) mmol/L Chloride (98-107) mmol/L Carbon Dioxide (21.0-32.0) mmol/L BUN (7-18) mg/dL Creatinine (0.51-1.17) mg/dL Est Cr Clr Drug Dosing mL/min Estimated GFR (MDRD) mL/min Glucose (74-106) mg/dL POC Glucose 41 L* (65-110) mg/dl Calcium (8.5-10.1) mg/dL Creatine Kinase (26-308) U/L Creatine Kinase Index (0.0-2.5) % CK-MB (CK-2) (0.00-3.60) ng/mL Troponin I (0.000-0.056) ng/mL NT-Pro-B Natriuret Pep (0-125) pg/mL Noe Results Last 24 Hours: Microbiology 06/17/17 22:17 Gram Stain - Final Sputum - Expectorated 06/17/17 23:14 Stool Occult Blood (NOE) - Final Stool / Feces NEGATIVE OCCULT BLOOD Med Orders - Current: Current Medications Acetaminophen (Tylenol) 650 mg PO Q4H PRN PRN Reason: Pain/Fever Albuterol (Proventil Neb Soln) 2.5 mg INH Q2H PRN PRN Reason: SHORTNESS OF BREATH Last Admin: 06/18/17 12:32 Dose: 2.5 mg Albuterol/Ipratropium (Duoneb 3.0-0.5 Mg/3 Ml) 3 ml NEB Q4HRRT PRN PRN Reason: Dyspnea Albuterol/Ipratropium (Duoneb 3.0-0.5 Mg/3 Ml) 3 ml NEB Q6HRRT [facility] Last Admin: 06/19/17 08:01 Dose: 3 ml Amlodipine Besylate (Norvasc) 10 mg PO DAILY [facility] Last Admin: 06/19/17 08:01 Dose: 10 mg Aspirin (Aspirin) 325 mg PO DAILY [facility] Last Admin: 06/19/17 07:59 Dose: 325 mg Atorvastatin Calcium (Lipitor) 40 mg PO BEDTIME [facility] Last Admin: 06/18/17 21:01 Dose: 40 mg Budesonide (Pulmicort) 0.5 mg NEB BIDRT [facility] Last Admin: 06/19/17 08:01 Dose: 0.5 mg Clopidogrel Bisulfate (Plavix) 75 mg PO DAILY [facility] Last Admin: 06/19/17 08:01 Dose: 75 mg Dorzolamide/Timolol (Cosopt 2%-0.5% Ophth Soln) 0 ml EYEBOTH BID [facility] Last Admin: 06/19/17 08:01 Dose: 1 drop Enoxaparin Sodium (Lovenox) 100 mg SUBCUT Q24H [facility] Last Admin: 06/18/17 17:40 Dose: 100 mg Finasteride (Proscar) 5 mg PO DAILY [facility] Last Admin: 06/19/17 08:01 Dose: 5 mg Furosemide (Lasix) 40 mg IVPUSH Q8H [facility] Last Admin: 06/19/17 08:01 Dose: 40 mg Glimepiride (Amaryl) 2 mg PO WITHBREAKFAST [facility] Last Admin: 06/19/17 11:41 Dose: Not Given Glimepiride (Amaryl) 4 mg PO DAILY@1800 [facility] Last Admin: 06/18/17 17:48 Dose: 4 mg Guaifenesin/Dextromethorphan (Mucinex Dm Er 600-30 Mg) 1 tab PO BID [facility] Last Admin: 06/19/17 08:00 Dose: 1 tab Azithromycin 500 mg/ Sodium (Chloride) 250 mls @ 250 mls/hr IV Q24H [facility] Last Admin: 06/18/17 14:22 Dose: 250 mls/hr Levofloxacin/Dextrose 500 mg/ (Premix) 100 mls @ 100 mls/hr IV Q24H [facility] Last Admin: 06/18/17 15:58 Dose: 100 mls/hr Insulin Aspart (Novolog Mix 70-30) 0 unit SUBCUT BIDAC [facility] PRN Reason: Protocol Last Admin: 06/19/17 07:58 Dose: Not Given Metformin HCl (Glucophage) 500 mg PO BIDMEALS [facility] Last Admin: 06/19/17 11:41 Dose: Not Given Metformin HCl (Glucophage Xr) 500 mg PO WITHDINNER [facility] Mirabegron (Myrbetriq) 25 mg PO DAILY [facility] Last Admin: 06/19/17 08:00 Dose: 25 mg Tafluprost/Pf [ Zioptan 0.0015% Eye Drops] 1 drop EYEBOTH BEDTIME [facility] Last Admin: 06/18/17 21:17 Dose: 1 drop Pioglitazone HCl (Actos) 45 mg PO DAILY [facility] Last Admin: 06/19/17 11:41 Dose: Not Given Potassium Chloride (Klor-Con M20) 20 meq PO TID [facility] Last Admin: 06/19/17 11:42 Dose: 20 meq Quinapril HCl (Accupril) 40 mg PO DAILY [facility] Last Admin: 06/19/17 08:00 Dose: 40 mg Sodium Chloride (Saline Flush) 10 ml FLUSH ASDIRECTED PRN PRN Reason: Keep Vein Open Last Admin: 06/19/17 08:05 Dose: 10 ml Sodium Chloride (Saline Flush) 10 ml FLUSH Q12HR PRN PRN Reason: Keep Vein Open Tamsulosin HCl (Flomax) 0.4 mg PO DAILY [facility] Last Admin: 06/19/17 08:01 Dose: 0.4 mg Temazepam (Restoril) 15 mg PO BEDTIME PRN PRN Reason: Insomnia Discontinued Medications Albuterol/Ipratropium (Duoneb 3.0-0.5 Mg/3 Ml) 3 ml NEB ONETIME ONE Stop: 06/17/17 15:01 Last Admin: 06/17/17 15:11 Dose: 3 ml Iopamidol (Isovue-370 (76%)) 100 ml IVPUSH ONETIME ONE Stop: 06/17/17 16:01 Last Admin: 06/17/17 16:04 Dose: 100 ml Warfarin Sodium (Coumadin) 10 mg PO ONETIME ONE Stop: 06/18/17 17:54 Last Admin: 06/18/17 18:39 Dose: 10 mg - Exam Quality Assessment: Supplemental Oxygen General: Alert, Oriented, Cooperative HEENT: Pupils Equal, Pupils Reactive, Mucous Membr. Moist/[place]: Supple Lungs: Decreased Breath Sounds (throughout), Crackles (mild/lower 1/2), Rhonchi (mild, throughout), Wheezing (mild, throughout). No: Stridor Cardiovascular: Regular Rate, Regular Rhythm GI/Abdominal Exam: Normal Bowel Sounds, Soft, Non-Tender, Other (obese) (Male) Exam: Deferred Back Exam: No: CVA Tenderness (L), CVA Tenderness (R) Extremities: Normal Range of Motion, Non-Tender, Normal Capillary Refill, Pedal Edema (mild, bilateral) Peripheral Pulses: 2+: Radial (L), Radial (R) Skin: Warm, Dry, Intact Neurological: No New Focal Deficit Psy/Mental Status: Alert, Normal Affect, Normal Mood EKG INTERPRETATION EKG Date: 06/19/17 Time: 07:10 Rhythm: A-Fib Rate (Beats/Min): 82 [place]: Normal P-Wave: Variable QRS: Other (incomplete RBBB) ST-T: Normal QT: Normal Comparison: No Change (Continued AFib) - Problem List & Annotations (1) Pneumonia SNOMED Code(s): 292712304 Code(s): J18.9 - PNEUMONIA, UNSPECIFIED ORGANISM Status: Acute Priority: High Current Visit: Yes Onset Date: ~06/17/17 Qualifiers: Pneumonia type: due to unspecified organism Laterality: left Lung location: lower lobe of lung Qualified Code(s): J18.1 - Lobar pneumonia, unspecified organism Annotation/Comment:: Symptoms significantly improved today by patient history. Continue aggressive triple nebulizer therapy, IV Cipro, IV Zithromax, etc. Sputum has been obtained with results pending. Blood cultures 2 collected in the emergency room negative. Previous one-week history of bronchitic type symptoms as per emergency room note. Significant left lower lobe pneumonia by chest x-ray with CT scan indicating diffuse bilateral pneumonia as per emergency room note. [facility] physician assumes care in the a.m. Anticipate an additional 1-2 days of required inpatient care. Patient would like to try to return home tomorrow. Chest x-ray to be repeated prior to discharge. (2) Atrial fibrillation SNOMED Code(s): 84297301 Code(s): I48.91 - UNSPECIFIED ATRIAL FIBRILLATION Status: Acute Priority : High Current Visit: Yes Onset Date: 06/18/17 Qualifiers: Atrial fibrillation type: persistent Qualified Code(s): I48.1 - Persistent atrial fibrillation Annotation/Comment:: Newly diagnosed atrial fibrillation by today's EKG. Note noisy baseline in yesterday's EKG with possible borderline threatening atrial fibrillation at that time. Initiate Coumadin therapy as above. Note previous history of PVCs, first-degree AV block, etc. as per emergency room note. (3) CHF (congestive heart failure) SNOMED Code(s): 11476101 Code(s): I50.9 - HEART FAILURE, UNSPECIFIED Status: Acute Priority: High Current Visit: Yes Onset Date: 06/17/17 Qualifiers: Heart failure type: unspecified Heart failure chronicity: acute Qualified Code(s): I50.9 - Heart failure, unspecified Annotation/Comment:: Mild centralized CHF with left pleural effusion but no chest pain or anginal type symptoms on admission. Cardiac echo performed yesterday overall unremarkable. Normal ejection fraction, wall motion overall normal. Cardiology consultation depending on his clinical course. Patient is already on Accupril. (4) D-dimer, elevated SNOMED Code(s): 239063198 Code(s): R79.89 - OTHER SPECIFIED ABNORMAL FINDINGS OF BLOOD CHEMISTRY Status: Acute Priority: High Current Visit: Yes Onset Date: 06/17/17 Annotation/Comment:: CTA scan of the chest results as per emergency room note. above. High-dose subcutaneous Lovenox initiated in the emergency room with venous Doppler studies negative (5) COPD (chronic obstructive pulmonary disease) SNOMED Code(s): 38459149 Code(s): J44.9 - CHRONIC OBSTRUCTIVE PULMONARY DISEASE, UNSPECIFIED Status : Chronic Priority: Medium Current Visit: Yes Qualifiers: COPD type: COPD with acute lower respiratory infection Qualified Code(s): J44.0 - Chronic obstructive pulmonary disease with acute lower respiratory infection Annotation/Comment:: Continue medical therapy as above. Duoneb nebulizer treatment given in the emergency room. Patient does not have a nebulizer unit or inhalers at home with this to be initiated at time of discharge. Consider PFTs once his respiratory and cardiac status have stabilized (6) Coronary artery disease SNOMED Code(s): 91442223 Code(s): I25.10 - ATHSCL HEART DISEASE OF [place] CORONARY ARTERY W/O ANG PCTRS Status: Chronic Priority: Medium Current Visit: Yes Qualifiers: Coronary Disease-Associated Artery/Lesion type: [place] artery [place] vs. transplanted heart: [place] heart Associated angina: without angina Qualified Code(s): I25.10 - Atherosclerotic heart disease of [place] coronary artery without angina pectoris Annotation/Comment:: as above. Note distant PTCA/stent. Consider further cardiac workup depending on his clinical course with previous negative Cardiolite stress test on 11/08/15 (7) Diabetes mellitus SNOMED Code(s): 01062198 Code(s): E11.9 - TYPE 2 DIABETES MELLITUS WITHOUT COMPLICATIONS Status: Chronic Priority: Medium Current Visit: Yes Qualifiers: Diabetes mellitus type: type 2 Diabetes mellitus complication status: with neurologic complications Diabetes mellitus complication detail: with polyneuropathy Diabetes mellitus senior living insulin use: without senior living use Qualified Code(s): E11.42 - Type 2 diabetes mellitus with diabetic polyneuropathy Annotation/Comment:: Noted to have hypoglycemia and generally low blood sugars since admission. Strongly suspect patient is noncompliant with diet at home and limitation of portions/being offered more appropriate diet since admission has reduced his daily carb intake to such an extent that his usual doses of diabetic medication are causing hypoglycemia. This was discussed with him this morning. Patient did not disagree with this theory. Plan at this time is to dial back his current diabetic medications and continue close observation of blood sugar trends. Discussed with him the importance of close monitoring of his blood sugars once he is home as he returns to his usual diet and medication regimen. A1C 7.4 (8) Dyslipidemia SNOMED Code(s): 012049520 Code(s): E78.5 - HYPERLIPIDEMIA, UNSPECIFIED Status: Chronic Priority: Medium Current Visit: Yes Annotation/Comment:: Lipid panel this morning does show stable dyslipidemia, including decreased HDL. Continue current statin therapy. Strict ADA, low-fat, low-cholesterol diet encouraged with additional fluid restrictions and diverticulosis regimen. Weight loss in moderation also advisable. (9) Hypertension SNOMED Code(s): 71962788 Code(s): I10 - ESSENTIAL (PRIMARY) HYPERTENSION Status: Chronic Priority : Medium Current Visit: Yes Qualifiers: Hypertension type: essential hypertension Qualified Code(s): I10 - Essential (primary) hypertension Annotation/Comment:: Blood pressures stable during admission. Note that Blood pressure was somewhat elevated initially in the emergency room on arrival, although significant improvement at time of admission. Continue to observe closely during this hospitalization with initiation of IV Lasix therapy as above. (10) Osteoarthritis SNOMED Code(s): 637679032 Code(s): M19.90 - UNSPECIFIED OSTEOARTHRITIS, UNSPECIFIED SITE Status: Chronic Priority: Medium Current Visit: Yes Qualifiers: Osteoarthritis location: multiple joints Osteoarthritis type: primary Qualified Code(s): M15.0 - Primary generalized (osteo)arthritis Annotation/Comment:: stable by history (11) Peptic reflux disease SNOMED Code(s): 87532573 Code(s): K21.9 - GASTRO-ESOPHAGEAL REFLUX DISEASE WITHOUT ESOPHAGITIS Status: Chronic Priority: Medium Current Visit: Yes Annotation/Comment:: No history of abdominal pain, recent GI bleed, etc. High-dose IV Pepcid given as GI prophylaxis in the emergency room - Problem List Review Problem List Initiated/Reviewed/Updated: Yes - My Orders Last 24 Hours: My Active Orders 06/19/17 13:00 metFORMIN [Glucophage XR] 500 mg PO WITHDINNER - Assessment Assessment:: As above - Plan Plan:: As above. Extensive precautions were given to the patient, who is in agreement with the treatment plan.
[2017-06-19] MEDS ORDERED: Warfarin 5 MG Tab PO ONE (13:57)
[2017-06-19] MEDS: Azithromycin 500 MG in Sodium Chloride 0.9% 250 ML IV SCH (14:22)
[2017-06-19] MEDS: Levofloxacin/Dextrose 5%-Water 500 MG in Premix Bag 1 BAG IV SCH (15:31)
[2017-06-19] MEDS: Enoxaparin 100 MG/1 ML Syringe SUBCUT SCH (17:13)
[2017-06-19] MEDS: atorvaSTATin 40 MG Tab PO SCH (19:25)
[2017-06-19] MEDS: Tafluprost/Pf [Zioptan 0.0015% Eye Drops] EYEBOTH SCH (19:25)
[2017-06-20] MEDS: Albuterol/Ipratropium 3.0-0.5 MG/3 ML Neb Soln NEB SCH ×4 (01:15→20:26)
[2017-06-20] MEDS: Sodium Chloride 0.9% 10 ML Syringe FLUSH PRN ×4 (01:15→18:06)
[2017-06-20] MEDS: Furosemide 40 MG/4 ML VIAL IVPUSH SCH ×3 (01:15→18:05)
[2017-06-20 07:27] LABS: CHLORIDE,CL 101 mmol/L (98-107); SODIUM,NA 137 mmol/L (136-145)
[2017-06-20] MEDS: Insuln Aspart Prot/Insulin Aspart 100 Units/ML 3 ML FlexPen SUBCUT SCH ×2 (07:55→18:02)
[2017-06-20] MEDS: Aspirin 325 MG Tab PO SCH (07:57)
[2017-06-20] MEDS: Finasteride 5 MG Tab PO SCH (07:57)
[2017-06-20] MEDS: Clopidogrel 75 MG Tab PO SCH (07:57)
[2017-06-20] MEDS: Glimepiride 2 MG Tab PO SCH (07:57)
[2017-06-20] MEDS: Tamsulosin 0.4 MG Cap.ER PO SCH (07:57)
[2017-06-20] MEDS: Dorzolamide/Timolol 2%-0.5% Ophth Soln 10 ML Bottle EYEBOTH SCH ×2 (07:57→18:02)
[2017-06-20] MEDS: Budesonide 0.5 MG/2 ML Neb Susp NEB SCH ×2 (07:58→20:27)
[2017-06-20] MEDS: Potassium Chloride 20 MEQ Tab.ER PO SCH ×2 (07:58→18:03)
[2017-06-20] MEDS: Dextromethorphan/guaiFENesin 600-30 MG Tab.ER PO SCH ×2 (07:58→18:03)
[2017-06-20] MEDS: Mirabegron 25 MG Tab Extended Release PO SCH (07:58)
[2017-06-20] MEDS: amLODIPine 5 MG Tab PO SCH (07:58)
[2017-06-20] MEDS ORDERED: Warfarin 5 MG Tab PO ONE (09:11)
--- NOTE | 2017-06-20 09:18 | PCM.PN ---
- General Info Date of Service: 06/20/17 Admission Dx/Problem (Free Text): 1. Bilateral pneumonia 2. CHF 3. COPD Functional Status: Reports: Pain Controlled, Tolerating Diet, Ambulating, Urinating, New Symptoms, Incentive Spirometry Pain Score: 0 - Review of Systems General: Reports: No Symptoms. Denies: Fever, Weakness, Fatigue, Malaise, Chills, Night Sweats, Appetite (Appetite good) HEENT: Reports: Rhinitis (Mild). Denies: Dysphasia, Ear Pain, Eye Pain, Headaches, Sinus Congestion, Sore Throat, Visual Changes Pulmonary: Reports: Shortness of Breath, Cough, Sputum (Green), Wheezing ( Improved). Denies: Pleuritic Chest Pain, Hemoptysis Cardiovascular: Reports: Dyspnea on Exertion, Edema (Improved dependent edema). Denies: Chest Pain, Palpitations, Orthopnea, PND, Lightheadedness Gastrointestinal: Reports: Abdominal Pain, Constipation (No Bowel movement since admission, however patient now feels that he is able to have a bowel movement later today and does not want any medications at this time). Denies: Decreased Appetite, Diarrhea, Difficulty Swallowing, Flatus, Hematochezia, Melena, Nausea, Vomiting Genitourinary: Reports: No Symptoms. Denies: Dysuria, Frequency, Burning, Urgency, Incontinence, Hematuria, Retention, Flank Pain Musculoskeletal: Reports: No Symptoms. Denies: Neck Pain, Shoulder Pain, Arm Pain, Back Pain, Leg Pain Skin: Reports: Bruising (Mild at Lovenox sites). Denies: Cyanosis, Jaundice, Mottled, Pallor, Diaphoresis, Pruritis, Rash Neurological: Reports: No Symptoms. Denies: Confusion, Dizziness, Numbness, Paresthesia, Tingling, Weakness Psychiatric: Reports: No Symptoms. Denies: Confusion, Depression, Anxiety, Agitation, Cravings - Patient Data Vitals - Most Recent: Last Vital Signs Temp 36.5 C 06/20/17 06:00 Pulse 86 06/20/17 06:00 Resp 15 06/20/17 06:00 BP 148/71 H 06/20/17 06:00 Pulse Ox 94 L 06/20/17 06:00 Vital Signs - 24 hr 06/19/17 06/19/17 06/20/17 12:00 18:00 00:00 Temperature [ 36.6 C 36.8 C 36.6 C Oral] Pulse, 67 74 76 Peripheral [ Left Pulse Oximetry] Respiratory 20 16 14 Rate Blood Pressure 100/56 L 147/72 H 130/71 [Left Upper Arm ] O2 Sat by Pulse 95 93 L 94 L Oximetry 06/20/17 06:00 Temperature [ 36.5 C Oral] Pulse, 86 Peripheral [ Left Pulse Oximetry] Respiratory 15 Rate Blood Pressure 148/71 H [Left Upper Arm ] O2 Sat by Pulse 94 L Oximetry Weight - Most Recent: 143.018 kg I&O - Last 24 Hours: Intake & Output 06/19/17 06/20/17 06/20/17 22:59 06:59 14:59 Intake Total 2040 1240 Output Total 850 5050 Balance 1190 -3810 Imaging Impressions - Last 24 Hours: security monitor shows atrial fibrillation with average heart rate in the 60s to 70s with no other ectopy or arrhythmia Chest x-ray, PA and lateral, shows moderate diffuse COPD changes with additional moderate prominence of the proximal aortic arch. Mild cardiomegaly with improved mostly centralized CHF and persistent mild right pleural effusion. No pneumothorax. Persistent moderate left lower lobe pulmonary infiltrates and consolidation, although improved from time of admission Official report of venous Doppler studies from 06/18/17 was reviewed with no evidence of DVT Official report of echocardiogram from 06/18/17 was reviewed with technically difficult study and suboptimal in nature. Note severe left atrial enlargement with adequate ejection fraction of 55-60 percent. Diastolic dysfunction could not be assessed with no significant valvular disease Lab Results Last 24 Hours: Laboratory Results - last 24 hr 06/19/17 06/20/17 06/20/17 Range/Units 16:47 01:14 06:35 WBC (4.0-10.2) K/uL RBC (4.33-5.41) M/uL Hgb (13.1-16.8) g/dL Hct (39.0-49.0) % MCV (84.0-98.0) fL MCH (28.2-33.3) pg MCHC (31.7-36.0) g/dL RDW (11.2-14.1) % Plt Count (150-350) K/uL Neut % (Auto) (45.0-80.0) % Lymph % (Auto) (10.0-50.0) % [place] % (Auto) (2.0-14.0) % Eos % (Auto) (0.0-5.0) % Baso % (Auto) (0.0-2.0) % Neut # (Auto) (1.40-7.00) K/uL Lymph # (Auto) (0.50-3.50) K/uL [place] # (Auto) (0.00-1.00) K/uL Eos # (Auto) (0.00-0.50) K/uL Baso # (Auto) (0.00-0.20) K/uL PT 12.0 H (9.8-11.7) SEC INR 1.1 D-Dimer, Quantitative (0-400) ng/mL Sodium (136-145) mmol/L Potassium (3.5-5.1) mmol/L Chloride (98-107) mmol/L Carbon Dioxide (21.0-32.0) mmol/L BUN (7-18) mg/dL Creatinine (0.51-1.17) mg/dL Est Cr Clr Drug Dosing mL/min Estimated GFR (MDRD) mL/min Glucose (74-106) mg/dL POC Glucose 66 88 (65-110) mg/dl Calcium (8.5-10.1) mg/dL Creatine Kinase (26-308) U/L Creatine Kinase Index (0.0-2.5) % CK-MB (CK-2) (0.00-3.60) ng/mL Troponin I (0.000-0.056) ng/mL 06/20/17 06/20/17 06/20/17 Range/Units 06:35 06:35 06:35 WBC 6.0 (4.0-10.2) K/uL RBC 4.88 (4.33-5.41) M/uL Hgb 14.4 (13.1-16.8) g/dL Hct 42.6 (39.0-49.0) % MCV 87.3 (84.0-98.0) fL MCH 29.5 (28.2-33.3) pg MCHC 33.8 (31.7-36.0) g/dL RDW 15.7 H (11.2-14.1) % Plt Count 210 (150-350) K/uL Neut % (Auto) 62.9 (45.0-80.0) % Lymph % (Auto) 23.1 (10.0-50.0) % [place] % (Auto) 9.3 (2.0-14.0) % Eos % (Auto) 4.5 (0.0-5.0) % Baso % (Auto) 0.2 (0.0-2.0) % Neut # (Auto) 3.79 (1.40-7.00) K/uL Lymph # (Auto) 1.39 (0.50-3.50) K/uL [place] # (Auto) 0.56 (0.00-1.00) K/uL Eos # (Auto) 0.27 (0.00-0.50) K/uL Baso # (Auto) 0.01 (0.00-0.20) K/uL PT (9.8-11.7) SEC INR D-Dimer, Quantitative 1340 H (0-400) ng/mL Sodium 137 (136-145) mmol/L Potassium 4.3 (3.5-5.1) mmol/L Chloride 101 (98-107) mmol/L Carbon Dioxide 25.3 (21.0-32.0) mmol/L BUN 17 (7-18) mg/dL Creatinine 0.88 (0.51-1.17) mg/dL Est Cr Clr Drug Dosing 84.63 mL/min Estimated GFR (MDRD) > 60 mL/min Glucose 128 H (74-106) mg/dL POC Glucose (65-110) mg/dl Calcium 9.6 (8.5-10.1) mg/dL Creatine Kinase 72 (26-308) U/L Creatine Kinase Index 0.7 (0.0-2.5) % CK-MB (CK-2) 0.50 (0.00-3.60) ng/mL Troponin I 0.003 (0.000-0.056) ng/mL 06/20/17 Range/Units 07:29 WBC (4.0-10.2) K/uL RBC (4.33-5.41) M/uL Hgb (13.1-16.8) g/dL Hct (39.0-49.0) % MCV (84.0-98.0) fL MCH (28.2-33.3) pg MCHC (31.7-36.0) g/dL RDW (11.2-14.1) % Plt Count (150-350) K/uL Neut % (Auto) (45.0-80.0) % Lymph % (Auto) (10.0-50.0) % [place] % (Auto) (2.0-14.0) % Eos % (Auto) (0.0-5.0) % Baso % (Auto) (0.0-2.0) % Neut # (Auto) (1.40-7.00) K/uL Lymph # (Auto) (0.50-3.50) K/uL [place] # (Auto) (0.00-1.00) K/uL Eos # (Auto) (0.00-0.50) K/uL Baso # (Auto) (0.00-0.20) K/uL PT (9.8-11.7) SEC INR D-Dimer, Quantitative (0-400) ng/mL Sodium (136-145) mmol/L Potassium (3.5-5.1) mmol/L Chloride (98-107) mmol/L Carbon Dioxide (21.0-32.0) mmol/L BUN (7-18) mg/dL Creatinine (0.51-1.17) mg/dL Est Cr Clr Drug Dosing mL/min Estimated GFR (MDRD) mL/min Glucose (74-106) mg/dL POC Glucose 126 H (65-110) mg/dl Calcium (8.5-10.1) mg/dL Creatine Kinase (26-308) U/L Creatine Kinase Index (0.0-2.5) % CK-MB (CK-2) (0.00-3.60) ng/mL Troponin I (0.000-0.056) ng/mL Noe Results Last 24 Hours: Microbiology 06/17/17 22:17 Gram Stain - Final Sputum - Expectorated Sputum Culture - Final Normal [place]ydi YEAST 06/17/17 23:14 Helicobacter pylori Antigen - Final Stool / Feces Microbiology 06/17/17 22:17 Sputum - Expectorated Gram Stain - Final 06/17/17 22:17 Sputum - Expectorated Sputum Culture - Final Normal [place]ydi YEAST 06/17/17 23:14 Stool / Feces Helicobacter pylori Antigen - Final 06/17/17 15:30 Blood - Venous - Lab Draw Aerobic Blood Culture - Preliminary NO GROWTH AFTER 2 DAYS 06/17/17 15:30 Blood - Venous - Lab Draw Anaerobic Blood Culture - Preliminary NO GROWTH AFTER 2 DAYS 06/17/17 15:25 Blood - Venous Aerobic Blood Culture - Preliminary NO GROWTH AFTER 2 DAYS 06/17/17 15:25 Blood - Venous Anaerobic Blood Culture - Preliminary NO GROWTH AFTER 2 DAYS 06/17/17 16:57 Urine, Clean Catch Urine Culture - Final MIXED POSITIVE LEYDI DAY 2 06/17/17 23:14 Stool / Feces Stool Occult Blood (NOE) - Final NEGATIVE OCCULT BLOOD 06/17/17 15:00 Nasal Aspirate, Left Influenza Type A Antigen Screen - Final NEGATIVE INFLUENZA A VIRUS AG 06/17/17 15:00 Nasal Aspirate, Left Influenza Type B Antigen Screen - Final NEGATIVE INFLUENZA B VIRUS AG Note negative stool specimen for H. pylori Med Orders - Current: Current Medications Acetaminophen (Tylenol) 650 mg PO Q4H PRN PRN Reason: Pain/Fever Albuterol (Proventil Neb Soln) 2.5 mg INH Q2H PRN PRN Reason: SHORTNESS OF BREATH Last Admin: 06/18/17 12:32 Dose: 2.5 mg Albuterol/Ipratropium (Duoneb 3.0-0.5 Mg/3 Ml) 3 ml NEB Q4HRRT PRN PRN Reason: Dyspnea Albuterol/Ipratropium (Duoneb 3.0-0.5 Mg/3 Ml) 3 ml NEB Q6HRRT [facility] Last Admin: 06/20/17 07:56 Dose: 3 ml Amlodipine Besylate (Norvasc) 10 mg PO DAILY [facility] Last Admin: 06/20/17 07:58 Dose: 10 mg Aspirin (Aspirin) 325 mg PO DAILY [facility] Last Admin: 06/20/17 07:57 Dose: 325 mg Atorvastatin Calcium (Lipitor) 40 mg PO BEDTIME [facility] Last Admin: 06/19/17 19:25 Dose: 40 mg Budesonide (Pulmicort) 0.5 mg NEB BIDRT [facility] Last Admin: 06/20/17 07:58 Dose: 0.5 mg Clopidogrel Bisulfate (Plavix) 75 mg PO DAILY [facility] Last Admin: 06/20/17 07:57 Dose: 75 mg Dorzolamide/Timolol (Cosopt 2%-0.5% Ophth Soln) 0 ml EYEBOTH BID [facility] Last Admin: 06/20/17 07:57 Dose: 1 drop Enoxaparin Sodium (Lovenox) 100 mg SUBCUT Q24H [facility] Last Admin: 06/19/17 17:13 Dose: 100 mg Finasteride (Proscar) 5 mg PO DAILY [facility] Last Admin: 06/20/17 07:57 Dose: 5 mg Furosemide (Lasix) 40 mg IVPUSH Q8H [facility] Last Admin: 06/20/17 07:58 Dose: 40 mg Glimepiride (Amaryl) 2 mg PO WITHBREAKFAST [facility] Last Admin: 06/20/17 07:57 Dose: 2 mg Glimepiride (Amaryl) 4 mg PO DAILY@1800 [facility] Last Admin: 06/18/17 17:48 Dose: 4 mg Guaifenesin/Dextromethorphan (Mucinex Dm Er 600-30 Mg) 1 tab PO BID [facility] Last Admin: 06/20/17 07:58 Dose: 1 tab Levofloxacin/Dextrose 500 mg/ (Premix) 100 mls @ 100 mls/hr IV Q24H [facility] Last Admin: 06/19/17 15:31 Dose: 100 mls/hr Azithromycin 500 mg/ Sodium (Chloride) 250 mls @ 250 mls/hr IV Q24H [facility] Last Admin: 06/19/17 14:22 Dose: 250 mls/hr Insulin Aspart (Novolog Mix 70-30) 0 unit SUBCUT BIDAC [facility] PRN Reason: Protocol Last Admin: 06/20/17 07:55 Dose: Not Given Metformin HCl (Glucophage) 500 mg PO BIDMEALS [facility] Last Admin: 06/19/17 11:41 Dose: Not Given Metformin HCl (Glucophage Xr) 500 mg PO DAILY@1200 [facility] Last Admin: 06/19/17 14:15 Dose: 500 mg Mirabegron (Myrbetriq) 25 mg PO DAILY [facility] Last Admin: 06/20/17 07:58 Dose: 25 mg Tafluprost/Pf [ Zioptan 0.0015% Eye Drops] 1 drop EYEBOTH BEDTIME [facility] Last Admin: 06/19/17 19:25 Dose: 1 drop Pioglitazone HCl (Actos) 45 mg PO DAILY [facility] Last Admin: 06/19/17 11:41 Dose: Not Given Potassium Chloride (Klor-Con M20) 20 meq PO TID [facility] Last Admin: 06/20/17 07:58 Dose: 20 meq Quinapril HCl (Accupril) 40 mg PO DAILY [facility] Last Admin: 06/20/17 07:56 Dose: 40 mg Sodium Chloride (Saline Flush) 10 ml FLUSH ASDIRECTED PRN PRN Reason: Keep Vein Open Last Admin: 06/20/17 01:15 Dose: 10 ml Sodium Chloride (Saline Flush) 10 ml FLUSH Q12HR PRN PRN Reason: Keep Vein Open Last Admin: 06/20/17 07:59 Dose: 10 ml Tamsulosin HCl (Flomax) 0.4 mg PO DAILY [facility] Last Admin: 06/20/17 07:57 Dose: 0.4 mg Temazepam (Restoril) 15 mg PO BEDTIME PRN PRN Reason: Insomnia Warfarin Sodium (Coumadin) 10 mg PO ONETIME ONE Stop: 06/20/17 09:12 Discontinued Medications Albuterol/Ipratropium (Duoneb 3.0-0.5 Mg/3 Ml) 3 ml NEB ONETIME ONE Stop: 06/17/17 15:01 Last Admin: 06/17/17 15:11 Dose: 3 ml Azithromycin 500 mg/ Sodium (Chloride) 250 mls @ 250 mls/hr IV Q24H [facility] Last Admin: 06/18/17 14:22 Dose: 250 mls/hr Iopamidol (Isovue-370 (76%)) 100 ml IVPUSH ONETIME ONE Stop: 06/17/17 16:01 Last Admin: 06/17/17 16:04 Dose: 100 ml Warfarin Sodium (Coumadin) 10 mg PO ONETIME ONE Stop: 06/18/17 17:54 Last Admin: 06/18/17 18:39 Dose: 10 mg Warfarin Sodium (Coumadin) 10 mg PO ONETIME ONE Stop: 06/19/17 13:58 Last Admin: 06/19/17 14:19 Dose: 10 mg - Exam Quality Assessment: Supplemental Oxygen, Central Line/PICC, DVT Prophylaxis ( Lovenox and Coumadin). No: Urine Catheter, Skin Breakdown, Restraints General: Alert, Oriented, Cooperative, No Acute Distress HEENT: Pupils Equal, Pupils Reactive, EOMI, Mucous Membr. Moist/[place], Other ( Stable moderate bilateral exophthalmos) Neck: Supple, Trachea Midline, No JVD, No Thyromegaly, Carotid Bruit (Stable mild bilateral carotid bruits). No: Lymphadenopathy Lungs: Decreased Breath Sounds (Left lower base), Rales (Mild to moderate diffuse bilaterally particularly in the bases), Rhonchi (Very occasional), Wheezing (Very occasional). No: Rub Cardiovascular: Irregular Rhythm. No: Bradycardia, Tachycardia, Murmurs, Gallops, Rubs GI/Abdominal Exam: Normal Bowel Sounds, Soft, Non-Tender, No Organomegaly, No Distention, No Abnormal Bruit, No Mass, Hernia (Stable 12 centimeter nonincarcerated umbilical hernia), Other (Obese. Minimal ecchymosis at Lovenox injection sites). No: Guarding (Male) Exam: Deferred Back Exam: Normal Inspection, Full Range of Motion. No: CVA Tenderness (L), CVA Tenderness (R), Muscle Spasm Extremities: Normal Range of Motion, Non-Tender, Pedal Edema (Improved bilateral trace pedal/pretibial edema). No: Flora's Sign Peripheral Pulses: 0: Dorsalis Pedis (L), Dorsalis Pedis (R), 2+: Radial (L), Radial (R) Skin: Warm, Dry, Intact, Ecchymosis (As above) Neurological: No New Focal Deficit Psy/Mental Status: Alert, Normal Affect, Normal Mood. No: Agitated, Hallucinations, Withdrawal Symptoms - Problem List & Annotations (1) Pneumonia SNOMED Code(s): 481926652 Code(s): J18.9 - PNEUMONIA, UNSPECIFIED ORGANISM Status: Acute Priority: High Current Visit: Yes Onset Date: ~06/17/17 Qualifiers: Pneumonia type: due to unspecified organism Laterality: left Lung location: lower lobe of lung Qualified Code(s): J18.1 - Lobar pneumonia, unspecified organism Annotation/Comment:: Symptoms significantly improved since admission with resolution of leukocytosis, however persistent moderate left lower lobe infiltrates and consolidation. Continue aggressive triple nebulizer therapy, IV Cipro, IV Zithromax, etc. Sputum shows normal floor with exception of non- clinically relevant mild yeast. Blood cultures 2 are negative to this point. Previous one-week history of bronchitic type symptoms as per emergency room note. Significant left lower lobe pneumonia by chest x-ray on admission with CT scan indicating diffuse bilateral pneumonia as per emergency room note. [facility] physician assumes care in the a.m. Anticipate an additional 1-2 days of required inpatient care until his INR is more therapeutic. She will likely not need aspirin and Plavix at discharge. Initiate Coumadin teaching. INR still subtherapeutic despite 2 previous 10 mg loading doses of Coumadin with additional dose to be given this morning. Initiate PPD and left lower lobe secondary to consolidation. Continue incentive spirometry. (2) CHF (congestive heart failure) SNOMED Code(s): 80734115 Code(s): I50.9 - HEART FAILURE, UNSPECIFIED Status: Acute Priority: High Current Visit: Yes Onset Date: 06/17/17 Qualifiers: Heart failure type: unspecified Heart failure chronicity: acute Qualified Code(s): I50.9 - Heart failure, unspecified Annotation/Comment:: Improved by chest x-ray centralized CHF with left pleural effusion but no chest pain or anginal type symptoms on admission. Cardiology consultation depending on his clinical course. Patient is already on Accupril. Attempt to decrease his Lasix therapy with probable low dose oral Lasix at discharge. Close follow-up by his regular provider especially in light of the newly initiated Coumadin. (3) D-dimer, elevated SNOMED Code(s): 104616040 Code(s): R79.89 - OTHER SPECIFIED ABNORMAL FINDINGS OF BLOOD CHEMISTRY Status: Acute Priority: High Current Visit: Yes Onset Date: 06/17/17 Annotation/Comment:: Persistent significant d-dimer elevation with negative workup to this point as above. Continue subcutaneous Lovenox with additional loading of oral Coumadin as above. (4) COPD (chronic obstructive pulmonary disease) SNOMED Code(s): 97133199 Code(s): J44.9 - CHRONIC OBSTRUCTIVE PULMONARY DISEASE, UNSPECIFIED Status : Chronic Priority: Medium Current Visit: Yes Qualifiers: COPD type: COPD with acute lower respiratory infection Qualified Code(s): J44.0 - Chronic obstructive pulmonary disease with acute lower respiratory infection Annotation/Comment:: Continue triple nebulizer treatments and additional DuoNeb. DuoNeb treatments at discharge. Arrangements will be made to have patient have a verbal nebulizer unit at home tomorrow. Consider PFTs once his respiratory and cardiac status have stabilized. Continue incentive spirometry. (5) Coronary artery disease SNOMED Code(s): 39061842 Code(s): I25.10 - ATHSCL HEART DISEASE OF [place] CORONARY ARTERY W/O ANG PCTRS Status: Chronic Priority: Medium Current Visit: Yes Qualifiers: Coronary Disease-Associated Artery/Lesion type: [place] artery [place] vs. transplanted heart: [place] heart Associated angina: without angina Qualified Code(s): I25.10 - Atherosclerotic heart disease of [place] coronary artery without angina pectoris Annotation/Comment:: as above. Note distant PTCA/stent. Consider further cardiac workup depending on his clinical course with previous negative Cardiolite stress test on 11/08/15 (6) Diabetes mellitus SNOMED Code(s): 45990251 Code(s): E11.9 - TYPE 2 DIABETES MELLITUS WITHOUT COMPLICATIONS Status: Chronic Priority: Medium Current Visit: Yes Qualifiers: Diabetes mellitus type: type 2 Diabetes mellitus complication status: with neurologic complications Diabetes mellitus complication detail: with polyneuropathy Diabetes mellitus detention insulin use: without detention use Qualified Code(s): E11.42 - Type 2 diabetes mellitus with diabetic polyneuropathy Annotation/Comment:: He has not needed sliding scale during hospitalization. Continue twice a day Accu-Cheks, etc. Noted to have hypoglycemia and generally low blood sugars since admission. Strongly suspect patient is noncompliant with diet at home and limitation of portions/being offered more appropriate diet since admission has reduced his daily carb intake to such an extent that his usual doses of diabetic medication are causing hypoglycemia. This was discussed with him by the [facility] physician yesterday. Patient did not disagree with this theory. Plan at this time is to dial back his current diabetic medications and continue close observation of blood sugar trends. Discussed with him the importance of close monitoring of his blood sugars once he is home as he returns to his usual diet and medication regimen. A1C 7.4 (7) Dyslipidemia SNOMED Code(s): 942989759 Code(s): E78.5 - HYPERLIPIDEMIA, UNSPECIFIED Status: Chronic Priority: Medium Current Visit: Yes Annotation/Comment:: Lipid panel this morning does show stable dyslipidemia, including decreased HDL. Continue current statin therapy. Strict ADA, low-fat, low-cholesterol diet encouraged with additional fluid restrictions and diverticulosis regimen. Weight loss in moderation also advisable. (8) Osteoarthritis SNOMED Code(s): 951459661 Code(s): M19.90 - UNSPECIFIED OSTEOARTHRITIS, UNSPECIFIED SITE Status: Chronic Priority: Medium Current Visit: Yes Qualifiers: Osteoarthritis location: multiple joints Osteoarthritis type: primary Qualified Code(s): M15.0 - Primary generalized (osteo)arthritis Annotation/Comment:: Uric acid level in the a.m. secondary to his Lasix therapy. His arthritis is otherwise stable by history (9) Peptic reflux disease SNOMED Code(s): 62080443 Code(s): K21.9 - GASTRO-ESOPHAGEAL REFLUX DISEASE WITHOUT ESOPHAGITIS Status: Chronic Priority: Medium Current Visit: Yes Annotation/Comment:: No history of abdominal pain, recent GI bleed, etc. High-dose IV Pepcid given as GI prophylaxis in the emergency room (10) Hypertension SNOMED Code(s): 31349317 Code(s): I10 - ESSENTIAL (PRIMARY) HYPERTENSION Status: Chronic Priority : Medium Current Visit: Yes Qualifiers: Hypertension type: essential hypertension Qualified Code(s): I10 - Essential (primary) hypertension Annotation/Comment:: Blood pressures stable during hospitalization. Note that Blood pressure was somewhat elevated initially in the emergency room on arrival , although significant improvement at time of admission. Continue to observe closely by his regular providers after discharge. (11) Atrial fibrillation SNOMED Code(s): 32659492 Code(s): I48.91 - UNSPECIFIED ATRIAL FIBRILLATION Status: Acute Priority : High Current Visit: Yes Onset Date: 06/18/17 Qualifiers: Atrial fibrillation type: persistent Qualified Code(s): I48.1 - Persistent atrial fibrillation Annotation/Comment:: Newly diagnosed atrial fibrillation during this hospitalization. Note noisy baseline in yesterday's EKG with possible borderline threatening atrial fibrillation at that time. Coumadin therapy as above. Note previous history of PVCs, first-degree AV block, etc. as per emergency room note. - Problem List Review Problem List Initiated/Reviewed/Updated: Yes - My Orders Last 24 Hours: My Active Orders 06/19/17 15:00 Azithromycin [Zithromax] 500 mg Sodium Chloride 0.9% [Normal Saline] 250 ml IV Q24H 06/20/17 09:11 Warfarin [Coumadin] 10 mg PO ONETIME ONE - Assessment Assessment:: As above. - Plan Plan:: As above. Extensive precautions were given to the patient, who is in agreement with the treatment plan. Hopefully patient can be discharged within the next 1- 2 days.
[2017-06-20] MEDS: Levofloxacin/Dextrose 5%-Water 500 MG in Premix Bag 1 BAG IV SCH (14:01)
[2017-06-20] MEDS: Azithromycin 500 MG in Sodium Chloride 0.9% 250 ML IV SCH (15:24)
[2017-06-20] MEDS: Enoxaparin 100 MG/1 ML Syringe SUBCUT SCH (17:59)
[2017-06-20] MEDS ORDERED: metFORMIN 500 MG Tab PO SCH (18:00)
[2017-06-20] MEDS: metFORMIN 500 MG Tab PO SCH (18:04)
[2017-06-20] MEDS: atorvaSTATin 40 MG Tab PO SCH (20:26)
[2017-06-20] MEDS: Tafluprost/Pf [Zioptan 0.0015% Eye Drops] EYEBOTH SCH (20:27)
[2017-06-21] MEDS: Albuterol/Ipratropium 3.0-0.5 MG/3 ML Neb Soln NEB SCH ×3 (04:39→13:44)
[2017-06-21 07:10] LABS: CHLORIDE,CL 99 mmol/L (98-107); SODIUM,NA 136 mmol/L (136-145)
[2017-06-21] MEDS: Insuln Aspart Prot/Insulin Aspart 100 Units/ML 3 ML FlexPen SUBCUT SCH (07:59)
[2017-06-21] MEDS: Dorzolamide/Timolol 2%-0.5% Ophth Soln 10 ML Bottle EYEBOTH SCH (07:59)
[2017-06-21] MEDS ORDERED: Glimepiride 2 MG Tab PO SCH (08:00)
[2017-06-21] MEDS: amLODIPine 5 MG Tab PO SCH (08:05)
[2017-06-21] MEDS: Aspirin 325 MG Tab PO SCH (08:06)
[2017-06-21] MEDS: Mirabegron 25 MG Tab Extended Release PO SCH (08:07)
[2017-06-21] MEDS: Tamsulosin 0.4 MG Cap.ER PO SCH (08:07)
[2017-06-21] MEDS: Dextromethorphan/guaiFENesin 600-30 MG Tab.ER PO SCH (08:07)
[2017-06-21] MEDS: Clopidogrel 75 MG Tab PO SCH (08:08)
[2017-06-21] MEDS: Finasteride 5 MG Tab PO SCH (08:08)
[2017-06-21] MEDS: Potassium Chloride 20 MEQ Tab.ER PO SCH (08:08)
[2017-06-21] MEDS: metFORMIN 500 MG Tab PO SCH (08:08)
[2017-06-21] MEDS: Furosemide 40 MG/4 ML VIAL IVPUSH SCH (08:09)
[2017-06-21] MEDS: Budesonide 0.5 MG/2 ML Neb Susp NEB SCH (08:09)
--- NOTE | 2017-06-21 14:35 | PCM.DCSUM1 ---
Discharge Summary - Hospital Course Brief History: Patient admitted for treatment of pneumonia - Discharge Data Discharge Date: 06/21/17 Discharge Disposition: Home, Self-Care 01 Condition: Good - Discharge Diagnosis/Problem(s) (1) Pneumonia SNOMED Code(s): 117400678 ICD Code: J18.9 - PNEUMONIA, UNSPECIFIED ORGANISM Status: Acute Priority : High Current Visit: Yes Onset Date: ~06/17/17 Problem Details: Symptoms significantly improved since admission with resolution of leukocytosis, persistent but improved moderate left lower lobe infiltrates and consolidation. Treatment included triple nebulizer therapy, IV Levaquin, IV Zithromax, etc. Sputum showed normal alicia with exception of non-clinically relevant mild yeast. Blood cultures 2 are negative to this point. Continue incentive spirometry, nebs, Levaquin at discharge. Qualifiers: Pneumonia type: due to unspecified organism Laterality: left Lung location: lower lobe of lung Qualified Code(s): J18.1 - Lobar pneumonia, unspecified organism (2) Atrial fibrillation SNOMED Code(s): 76699489 ICD Code: I48.91 - UNSPECIFIED ATRIAL FIBRILLATION Status: Acute Priority : High Current Visit: Yes Onset Date: 06/18/17 Problem Details: Newly diagnosed atrial fibrillation which persisted during this hospitalization. Initiated Coumadin therapy. Note previous history of PVCs, first-degree AV block , etc. as per emergency room note. Qualifiers: Atrial fibrillation type: persistent Qualified Code(s): I48.1 - Persistent atrial fibrillation (3) CHF (congestive heart failure) SNOMED Code(s): 21429550 ICD Code: I50.9 - HEART FAILURE, UNSPECIFIED Status: Acute Priority: High Current Visit: Yes Onset Date: 06/17/17 Problem Details: Improved by chest x-ray centralized CHF with left pleural effusion but no chest pain or anginal type symptoms on admission. Will recommend Cardiology consultation given the CHF and Afib Patient is already on Accupril. Attempt to decrease his Lasix therapy with probable low dose oral Lasix at discharge. Close follow-up by his regular provider especially in light of the newly initiated Coumadin. Qualifiers: Heart failure type: unspecified Heart failure chronicity: acute Qualified Code(s): I50.9 - Heart failure, unspecified (4) D-dimer, elevated SNOMED Code(s): 134910012 ICD Code: R79.89 - OTHER SPECIFIED ABNORMAL FINDINGS OF BLOOD CHEMISTRY Status: Acute Priority: High Current Visit: Yes Onset Date: 06/17/17 Problem Details: Persistent significant d-dimer elevation with negative workup to this point as above. (5) COPD (chronic obstructive pulmonary disease) SNOMED Code(s): 75637996 ICD Code: J44.9 - CHRONIC OBSTRUCTIVE PULMONARY DISEASE, UNSPECIFIED Status : Chronic Priority: Medium Current Visit: Yes Problem Details: DuoNeb treatments at discharge. Qualifiers: COPD type: COPD with acute lower respiratory infection Qualified Code(s): J44.0 - Chronic obstructive pulmonary disease with acute lower respiratory infection (6) Coronary artery disease SNOMED Code(s): 21823741 ICD Code: I25.10 - ATHSCL HEART DISEASE OF [place] CORONARY ARTERY W/O ANG PCTRS Status: Chronic Priority: Medium Current Visit: Yes Problem Details: Cardiolite stress test on 11/08/15 Qualifiers: Coronary Disease-Associated Artery/Lesion type: [place] artery [place] vs. transplanted heart: [place] heart Associated angina: without angina Qualified Code(s): I25.10 - Atherosclerotic heart disease of [place] coronary artery without angina pectoris (7) Diabetes mellitus SNOMED Code(s): 61186353 ICD Code: E11.9 - TYPE 2 DIABETES MELLITUS WITHOUT COMPLICATIONS Status: Chronic Priority: Medium Current Visit: Yes Problem Details: He has not needed sliding scale during hospitalization. Continued twice a day Accu-Cheks. Noted to have hypoglycemia and generally low blood sugars since admission. Strongly suspect patient is noncompliant with diet at home and limitation of portions/being offered more appropriate diet since admission has reduced his daily carb intake to such an extent that his usual doses of diabetic medication are causing hypoglycemia. This was discussed with him during his stay. Patient did not disagree with this theory. Patient made aware of the importance of close monitoring of his blood sugars once he is home as he returns to his usual diet and medication regimen. A1C 7.4 Qualifiers: Diabetes mellitus type: type 2 Diabetes mellitus complication status: with neurologic complications Diabetes mellitus complication detail: with polyneuropathy Diabetes mellitus snf insulin use: without snf use Qualified Code(s): E11.42 - Type 2 diabetes mellitus with diabetic polyneuropathy (8) Dyslipidemia SNOMED Code(s): 870162712 ICD Code: E78.5 - HYPERLIPIDEMIA, UNSPECIFIED Status: Chronic Priority: Medium Current Visit: Yes Problem Details: Lipid panel this morning does show stable dyslipidemia, including decreased HDL. Continue current statin therapy. Strict ADA, low-fat, low-cholesterol diet encouraged with additional fluid restrictions and diverticulosis regimen. Weight loss in moderation also advisable. (9) Hypertension SNOMED Code(s): 24418619 ICD Code: I10 - ESSENTIAL (PRIMARY) HYPERTENSION Status: Chronic Priority : Medium Current Visit: Yes Problem Details: Blood pressures stable during hospitalization. Note that Blood pressure was somewhat elevated initially in the emergency room on arrival, although significant improvement at time of admission. Continue to observe closely by his regular providers after discharge. Qualifiers: Hypertension type: essential hypertension Qualified Code(s): I10 - Essential (primary) hypertension (10) Osteoarthritis SNOMED Code(s): 898297081 ICD Code: M19.90 - UNSPECIFIED OSTEOARTHRITIS, UNSPECIFIED SITE Status: Chronic Priority: Medium Current Visit: Yes Problem Details: Uric acid level in the a.m. secondary to his Lasix therapy. His arthritis is otherwise stable by history Qualifiers: Osteoarthritis location: multiple joints Osteoarthritis type: primary Qualified Code(s): M15.0 - Primary generalized (osteo)arthritis (11) Peptic reflux disease SNOMED Code(s): 59424524 ICD Code: K21.9 - GASTRO-ESOPHAGEAL REFLUX DISEASE WITHOUT ESOPHAGITIS Status: Chronic Priority: Medium Current Visit: Yes Problem Details: No history of abdominal pain, recent GI bleed, etc. High-dose IV Pepcid given as GI prophylaxis in the emergency room - Patient Summary/Data Complications: none Hospital Course: Patient improved over the course of his stay. Less SOB, improved cough, more energy. Improved labs as well as infiltrates. Blood sugars stable on diabetic diet, albeit low initially until some medication adjustments were require due to his receiving a more appropriate diabetic diet while inpatient. Patient strongly desires to go home today. Will discharge on continued PO antibiotics and home nebulizer treatments. Close follow up with primary MD recommended to check on overall treatment progress as well as repeat INR and continue to monitor patient now that Coumadin therapy has been initiated. - Patient Instructions Diet: Diabetic Diet Activity: As Tolerated Driving: May Drive Today Showering/Bathing: May Shower Notify Provider of: Fever Other/Special Instructions: Follow up Saturday at [facility] for repeat INR. You may need Coumadin dose changed. Follow up with Sacha Mcginnis at 11am. Repeat INR at that time. Cardiology consult request is also recommended. - Discharge Plan Prescriptions/Med Rec: Albuterol/Ipratropium [DuoNeb 3.0-0.5 MG/3 ML] 3 ml NEB Q6HRRT #1 box Furosemide [Lasix] 20 mg PO DAILY #30 tab Levofloxacin [Levaquin] 500 mg PO DAILY #7 tab Warfarin Sodium [Coumadin] 7.5 mg PO DAILY #7 tablet Home Medications: Home Meds Acetaminophen [Tylenol] 650 mg PO Q4H PRN 06/17/17 [History] Aspirin 325 mg PO DAILY 06/17/17 [History] Calcium Carbonate [Tums Extra Strength] 1,500 mg PO BEDTIME PRN 06/17/17 [ History] Dorzolamide/Timolol/Pf [Cosopt Pf Eye Drops] 1 drop EYEBOTH BID 06/17/17 [ History] Finasteride [Proscar] 5 mg PO DAILY 06/17/17 [History] Glimepiride 2 mg PO WITHBREAKFAST 06/17/17 [History] Glimepiride 4 mg PO DAILY@18 06/17/17 [History] Imiquimod [Aldara 5% Crm] 1 each TOP BEDTIME PRN 06/17/17 [History] Mirabegron [Myrbetriq] 25 mg PO DAILY 06/17/17 [History] Nitroglycerin [Nitrostat] 0.4 mg SL Q5M 06/17/17 [History] Pioglitazone HCl [Actos] 45 mg PO DAILY 06/17/17 [History] Quinapril HCl [Accupril] 40 mg PO DAILY 06/17/17 [History] Tafluprost/Pf [Zioptan 0.0015% Eye Drops] 1 drop EYEBOTH BEDTIME 06/17/17 [ History] Tamsulosin [Flomax] 0.4 mg PO DAILY 06/17/17 [History] amLODIPine [Norvasc] 10 mg PO DAILY 06/17/17 [History] atorvaSTATin [Lipitor] 40 mg PO BEDTIME 06/17/17 [History] metFORMIN [Glucophage] 500 mg PO BIDMEALS 06/17/17 [History] Albuterol/Ipratropium [DuoNeb 3.0-0.5 MG/3 ML] 3 ml NEB Q6HRRT #1 box 06/21/17 [ Rx] Furosemide [Lasix] 20 mg PO DAILY #30 tab 06/21/17 [Rx] Levofloxacin [Levaquin] 500 mg PO DAILY #7 tab 06/21/17 [Rx] Warfarin Sodium [Coumadin] 7.5 mg PO DAILY #7 tablet 06/21/17 [Rx] Patient Handouts: Budesonide; Formoterol Inhalation, Furosemide injection, Levofloxacin injection, Azithromycin for infusion, Warfarin tablets, Albuterol; Ipratropium solution for inhalation, Community-Acquired Pneumonia, Adult, Easy- to-Read Forms: ED Department Discharge Referrals: Sacha Mcginnis PA [Primary Care Provider] - - General Info Date of Service: 06/21/17 Admission Dx/Problem (Free Text: 1. Bilateral pneumonia 2. CHF 3. COPD Subjective Update: Overall patient feels better. Would like to go home tomorrow. Cough much improved. Functional Status: Reports: Pain Controlled, Tolerating Diet, Ambulating, Urinating - Review of Systems General: Reports: No Symptoms HEENT: Reports: Rhinitis (mild) Pulmonary: Reports: Shortness of Breath (improving), Cough (improving), Sputum ( improving). Denies: Pleuritic Chest Pain, Hemoptysis, Wheezing Cardiovascular: Reports: Dyspnea on Exertion (improving). Denies: Chest Pain, Palpitations, Lightheadedness Gastrointestinal: Reports: No Symptoms Genitourinary: Reports: No Symptoms Musculoskeletal: Reports: No Symptoms Skin: Reports: Bruising (around Lovenox sites) Neurological: Reports: No Symptoms Psychiatric: Reports: No Symptoms - Patient Data Vitals - Most Recent: Last Vital Signs Temp 37.1 C 06/21/17 12:00 Pulse 92 06/21/17 12:00 Resp 18 06/21/17 12:00 BP 153/77 H 06/21/17 12:00 Pulse Ox 94 L 06/21/17 12:00 Weight - Most Recent: 143.244 kg I&O - Last 24 hours: Intake & Output 06/20/17 06/21/17 06/21/17 22:59 06:59 14:59 Intake Total 180 2760 Output Total 2900 1000 1300 Balance -2720 -1000 1460 Lab Results - Last 24 hrs: Laboratory Results - last 24 hr 03/01/18 06/21/17 06/21/17 Range/Units 17:03 06:38 06:38 PT 14.5 H (9.8-11.7) SEC INR 1.3 Sodium 136 (136-145) mmol/L Potassium 4.3 (3.5-5.1) mmol/L Chloride 99 (98-107) mmol/L Carbon Dioxide 24.8 (21.0-32.0) mmol/L BUN 14 (7-18) mg/dL Creatinine 0.78 (0.51-1.17) mg/dL Est Cr Clr Drug Dosing 95.47 mL/min Estimated GFR (MDRD) > 60 mL/min Glucose 162 H (74-106) mg/dL POC Glucose 144 H (65-110) mg/dl Uric Acid 6.1 (2.6-7.2) mg/dL Calcium 9.3 (8.5-10.1) mg/dL Magnesium 1.7 L (1.8-2.4) mg/dL NT-Pro-B Natriuret Pep 286 H (0-125) pg/mL 06/21/17 Range/Units 07:38 PT (9.8-11.7) SEC INR Sodium (136-145) mmol/L Potassium (3.5-5.1) mmol/L Chloride (98-107) mmol/L Carbon Dioxide (21.0-32.0) mmol/L BUN (7-18) mg/dL Creatinine (0.51-1.17) mg/dL Est Cr Clr Drug Dosing mL/min Estimated GFR (MDRD) mL/min Glucose (74-106) mg/dL POC Glucose 157 H (65-110) mg/dl Uric Acid (2.6-7.2) mg/dL Calcium (8.5-10.1) mg/dL Magnesium (1.8-2.4) mg/dL NT-Pro-B Natriuret Pep (0-125) pg/mL DOUG Results - Last 24 hrs: Microbiology 06/17/17 22:17 Gram Stain - Final Sputum - Expectorated Sputum Culture - Final Normal Alicia YEAST Med Orders - Current: Current Medications Acetaminophen (Tylenol) 650 mg PO Q4H PRN PRN Reason: Pain/Fever Albuterol (Proventil Neb Soln) 2.5 mg INH Q2H PRN PRN Reason: SHORTNESS OF BREATH Last Admin: 06/18/17 12:32 Dose: 2.5 mg Albuterol/Ipratropium (Duoneb 3.0-0.5 Mg/3 Ml) 3 ml NEB Q4HRRT PRN PRN Reason: Dyspnea Albuterol/Ipratropium (Duoneb 3.0-0.5 Mg/3 Ml) 3 ml NEB Q6HRRT [facility] Last Admin: 06/21/17 13:44 Dose: 3 ml Amlodipine Besylate (Norvasc) 10 mg PO DAILY [facility] Last Admin: 06/21/17 08:05 Dose: 10 mg Aspirin (Aspirin) 325 mg PO DAILY [facility] Last Admin: 06/21/17 08:06 Dose: 325 mg Atorvastatin Calcium (Lipitor) 40 mg PO BEDTIME [facility] Last Admin: 06/20/17 20:26 Dose: 40 mg Budesonide (Pulmicort) 0.5 mg NEB BIDRT [facility] Last Admin: 06/21/17 08:09 Dose: 0.5 mg Clopidogrel Bisulfate (Plavix) 75 mg PO DAILY [facility] Last Admin: 06/21/17 08:08 Dose: 75 mg Dorzolamide/Timolol (Cosopt 2%-0.5% Ophth Soln) 0 ml EYEBOTH BID [facility] Last Admin: 06/21/17 07:59 Dose: 1 drop Enoxaparin Sodium (Lovenox) 100 mg SUBCUT Q24H [facility] Last Admin: 06/20/17 17:59 Dose: 100 mg Finasteride (Proscar) 5 mg PO DAILY [facility] Last Admin: 06/21/17 08:08 Dose: 5 mg Furosemide (Lasix) 40 mg IVPUSH BID [facility] Last Admin: 06/21/17 08:09 Dose: 40 mg Glimepiride (Amaryl) 4 mg PO WITHBREAKFAST [facility] Last Admin: 06/21/17 08:07 Dose: 4 mg Guaifenesin/Dextromethorphan (Mucinex Dm Er 600-30 Mg) 1 tab PO BID [facility] Last Admin: 06/21/17 08:07 Dose: 1 tab Levofloxacin/Dextrose 500 mg/ (Premix) 100 mls @ 100 mls/hr IV Q24H [facility] Last Admin: 06/20/17 14:01 Dose: 100 mls/hr Azithromycin 500 mg/ Sodium (Chloride) 250 mls @ 250 mls/hr IV Q24H [facility] Last Admin: 06/20/17 15:24 Dose: 250 mls/hr Insulin Aspart (Novolog Mix 70-30) 0 unit SUBCUT BIDAC [facility] PRN Reason: Protocol Last Admin: 06/21/17 07:59 Dose: 4 units Metformin HCl (Glucophage) 500 mg PO BID [facility] Last Admin: 06/21/17 08:08 Dose: 500 mg Mirabegron (Myrbetriq) 25 mg PO DAILY [facility] Last Admin: 06/21/17 08:07 Dose: 25 mg Tafluprost/Pf [ Zioptan 0.0015% Eye Drops] 1 drop EYEBOTH BEDTIME [facility] Last Admin: 06/20/17 20:27 Dose: 1 drop Potassium Chloride (Klor-Con M20) 20 meq PO BID [facility] Last Admin: 06/21/17 08:08 Dose: 20 meq Quinapril HCl (Accupril) 40 mg PO DAILY [facility] Last Admin: 06/21/17 08:05 Dose: 40 mg Sodium Chloride (Saline Flush) 10 ml FLUSH ASDIRECTED PRN PRN Reason: Keep Vein Open Last Admin: 06/20/17 15:26 Dose: 10 ml Sodium Chloride (Saline Flush) 10 ml FLUSH Q12HR PRN PRN Reason: Keep Vein Open Last Admin: 06/20/17 18:06 Dose: 10 ml Tamsulosin HCl (Flomax) 0.4 mg PO DAILY [facility] Last Admin: 06/21/17 08:07 Dose: 0.4 mg Temazepam (Restoril) 15 mg PO BEDTIME PRN PRN Reason: Insomnia Discontinued Medications Albuterol/Ipratropium (Duoneb 3.0-0.5 Mg/3 Ml) 3 ml NEB ONETIME ONE Stop: 06/17/17 15:01 Last Admin: 06/17/17 15:11 Dose: 3 ml Furosemide (Lasix) 40 mg IVPUSH Q8H [facility] Last Admin: 06/20/17 07:58 Dose: 40 mg Glimepiride (Amaryl) 2 mg PO WITHBREAKFAST [facility] Last Admin: 06/20/17 07:57 Dose: 2 mg Glimepiride (Amaryl) 4 mg PO DAILY@1800 [facility] Last Admin: 06/18/17 17:48 Dose: 4 mg Azithromycin 500 mg/ Sodium (Chloride) 250 mls @ 250 mls/hr IV Q24H [facility] Last Admin: 06/18/17 14:22 Dose: 250 mls/hr Iopamidol (Isovue-370 (76%)) 100 ml IVPUSH ONETIME ONE Stop: 06/17/17 16:01 Last Admin: 06/17/17 16:04 Dose: 100 ml Metformin HCl (Glucophage) 500 mg PO BIDMEALS [facility] Last Admin: 06/19/17 11:41 Dose: Not Given Metformin HCl (Glucophage Xr) 500 mg PO DAILY@1200 [facility] Last Admin: 06/19/17 14:15 Dose: 500 mg Metformin HCl (Glucophage) 500 mg PO QPM LOLY Pioglitazone HCl (Actos) 45 mg PO DAILY [facility] Last Admin: 06/19/17 11:41 Dose: Not Given Potassium Chloride (Klor-Con M20) 20 meq PO TID [facility] Last Admin: 06/20/17 07:58 Dose: 20 meq Warfarin Sodium (Coumadin) 10 mg PO ONETIME ONE Stop: 06/18/17 17:54 Last Admin: 06/18/17 18:39 Dose: 10 mg Warfarin Sodium (Coumadin) 10 mg PO ONETIME ONE Stop: 06/19/17 13:58 Last Admin: 06/19/17 14:19 Dose: 10 mg Warfarin Sodium (Coumadin) 10 mg PO ONETIME ONE Stop: 06/20/17 09:12 Last Admin: 06/20/17 09:59 Dose: 10 mg - Exam General: Reports: Alert, Oriented, Cooperative, No Acute Distress HEENT: Reports: Pupils Equal, Pupils Reactive, EOMI, Mucous Membr. Moist/[place] Neck: Reports: Supple Lungs: Reports: Clear to Auscultation, Normal Respiratory Effort, Decreased Breath Sounds (bilaterally) Cardiovascular: Reports: Regular Rate, Irregular Rhythm. Denies: Murmurs GI/Abdominal Exam: Normal Bowel Sounds, Soft, Non-Tender (Male) Exam: Deferred Rectal (Males) Exam: Deferred Back Exam: Denies: CVA Tenderness (L), CVA Tenderness (R), Paraspinal Tenderness , Vertebral Tenderness Extremities: Normal Range of Motion (for patient), Non-Tender, Normal Capillary Refill Skin: Reports: Warm, Dry, Intact Neurological: Reports: No New Focal Deficit Psy/Mental Status: Reports: Alert, Normal Affect, Normal Mood *Q Meaningful Use (DIS) - VTE *Q VTE Criteria *Q: - Stroke *Q Stroke Criteria *Q: - AMI *Q AMI Criteria *Q:
[2017-06-21] MEDS ORDERED: Warfarin 5 MG Tab PO ONE (14:45)
== END 2017-06-21 15:38 | disposition home or self-care (01) | DRG 190 ==
LOC: LL.ED 14:45 → LL.MS 17:01
PROVIDERS: ADMIT Family Medicine; ATTEND Family Medicine
DX: J44.0 Chronic obstructive pulmonary disease with (acute) lower respiratory infection (principal); J18.9 Pneumonia, unspecified organism; I13.0 Hypertensive heart and chronic kidney disease with heart failure and stage 1 through stage 4 chronic kidney disease, or unspecified chronic kidney disease; I48.1 Persistent atrial fibrillation; J44.1 Chronic obstructive pulmonary disease with (acute) exacerbation; Z87.01 Personal history of pneumonia (recurrent); E78.5 Hyperlipidemia, unspecified; K21.9 Gastro-esophageal reflux disease without esophagitis; K44.9 Diaphragmatic hernia without obstruction or gangrene; I25.119 Atherosclerotic heart disease of native coronary artery with unspecified angina pectoris; N18.9 Chronic kidney disease, unspecified; Z87.891 Personal history of nicotine dependence; Z95.5 Presence of coronary angioplasty implant and graft; I50.9 Heart failure, unspecified; M19.90 Unspecified osteoarthritis, unspecified site; E11.42 Type 2 diabetes mellitus with diabetic polyneuropathy; R79.1 Abnormal coagulation profile; N40.1 Benign prostatic hyperplasia with lower urinary tract symptoms; R33.8 Other retention of urine; I25.2 Old myocardial infarction; J84.10 Pulmonary fibrosis, unspecified; G89.29 Other chronic pain; M54.9 Dorsalgia, unspecified; H40.9 Unspecified glaucoma; Z79.84 Long term (current) use of oral hypoglycemic drugs; Z79.82 Long term (current) use of aspirin; Z79.899 Other long term (current) drug therapy; E83.42 Hypomagnesemia
CPT/HCPCS: 36415; 71275; 80076; 81001; 82044; 82550; 82553; 83605; 83735; 84443; 84484; 85379; 87040 ×2; 87086; 87804 ×2; 93005; 94640; 96365; 96367; 96374; 99285; J0456; J1940; J1956; J7050 ×4; Q9967 ×2; 71046; 80048; 80053; 80061; 82272; 82962; 83036; 83880; 84550; 85025; 85610; 87070; 87205; 87338; 93306; 93970; 94667; 94668; A9270-GY; J1650; J1815-GY; J7620-GY

== ENCOUNTER 2018-07-10 09:40 | Day surgery (SDC) | payer MEDICARE, BC ==
[2018-07-10] MEDS ORDERED: Sodium Chloride 0.9% 10 ML Syringe FLUSH PRN (09:45)
[2018-07-10] MEDS ORDERED: Lactated Ringers 1,000 ML IV SCH (09:45)
--- NOTE | 2018-07-10 10:54 | PCM.HPR ---
H & P Addendum review - H & P Addendum Review Date of Original H & P: 07/07/18 Date Reviewed: 07/10/18 Time Reviewed: 10:54 Patient was Examined: No Changes
[2018-07-10] MEDS ORDERED: Midazolam 1 MG/ML 2 ML SDV ONE ×2 (10:56→11:07)
[2018-07-10] MEDS ORDERED: Propofol 200 MG/20 ML SDV ONE ×2 (10:56→11:07)
--- NOTE | 2018-07-10 11:36 | PCM.OPNOTE ---
- General Post-Op/Procedure Note Date of Surgery/Procedure: 07/10/18 Operative Procedure(s): Colonscopy Findings: normal Pre Op Diagnosis: Screening Post-Op Diagnosis: Same Anesthesia Technique: SANDRA Primary Surgeon: Fernie Lay Anesthesia Provider: Yvette Rodriguez Complications: None Condition: Good
--- NOTE | 2018-07-10 14:14 | OR ---
Date of Procedure: 07/10/2018 PREOPERATIVE DIAGNOSIS: Colon screening. POSTOPERATIVE DIAGNOSIS: Normal colonoscopy. PROCEDURE: Colonoscopy. ANESTHESIA: IV sedation. PROCEDURE: The patient was brought to the procedure. The patient was placed on his left side and IV sedation administered. Digital rectal exam was performed which was normal. Colonoscope was inserted and advanced to the level of the cecum without difficulty. I could not visualize behind the entire ileocecal valve, but visible cecum was normal. The prep was good and surfaces were well visualized. Upon withdrawing the scope, the ascending, transverse, and descending colon were normal in appearance. Sigmoid colon and rectum were normal. Retroflexion was normal. The air was removed and the scope withdrawn. The patient tolerated the procedure well and returned to recovery in stable condition. The patient does not require further colon screening because of his age. ROBBIN KOENIG MD /[id number]
== END 2018-07-10 12:25 | disposition home or self-care (01) ==
LOC: LL.SDS 09:40
PROVIDERS: ATTEND Surgery
DX: Z12.11 Encounter for screening for malignant neoplasm of colon (principal); I48.91 Unspecified atrial fibrillation; I11.0 Hypertensive heart disease with heart failure; I50.9 Heart failure, unspecified; I25.10 Atherosclerotic heart disease of native coronary artery without angina pectoris; J45.909 Unspecified asthma, uncomplicated; E78.5 Hyperlipidemia, unspecified; E11.9 Type 2 diabetes mellitus without complications; K21.9 Gastro-esophageal reflux disease without esophagitis; Z79.84 Long term (current) use of oral hypoglycemic drugs; Z79.899 Other long term (current) drug therapy; Z87.891 Personal history of nicotine dependence
CPT/HCPCS: 00812; 82962; J2250; J2704; J7120

== ENCOUNTER 2022-09-25 10:34 | Inpatient (IN) | payer MEDICARE ==
[2022-09-25] MEDS ORDERED: Sodium Chloride 0.9% 10 ML Syringe FLUSH PRN ×2 (10:42→12:30)
[2022-09-25 10:57] LABS: BILIRUBIN,URINE NEGATIVE (NEGATIVE); GLUCOSE,URINE NEGATIVE (NEGATIVE); KETONES,URINE NEGATIVE (NEGATIVE); LEUKOCYTE ESTERASE,URINE NEGATIVE (NEGATIVE); NITRITE,URINE NEGATIVE (NEGATIVE); OCCULT BLOOD,URINE LARGE (NEGATIVE); PH,URINE 5.5 (5.0-9.0); PROTEIN,URINE NEGATIVE (NEGATIVE); UROBILINOGEN,URINE 0.2 E.U./dL (0.2-1.0)
[2022-09-25 11:01] LABS: BASOPHILS ABSOLUTE AUTO 0.03 K/uL (0.00-0.20); BASOPHILS PERCENT AUTO 0.2 % (0.0-2.0); EOSINOPHILS ABSOLUTE AUTO 0.06 K/uL (0.00-0.50); EOSINOPHILS PERCENT AUTO 0.5 % (0.0-5.0); HEMATOCRIT 39.5 % (39.0-49.0); HEMOGLOBIN 12.9 g/dL (13.1-16.8); LYMPHOCYTES ABSOLUTE AUTO 1.05 K/uL (0.50-3.50); LYMPHOCYTES PERCENT AUTO 8.3 % (10.0-50.0); MEAN CORPUSCULAR HEMOGLOBIN 30.1 pg (28.2-33.3); MEAN CORPUSCULAR HGB CONC 32.7 g/dL (31.7-36.0); MEAN CORPUSCULAR VOLUME 92.1 fL (84.0-98.0); MONOCYTES ABSOLUTE AUTO 0.92 K/uL (0.00-1.00); MONOCYTES PERCENT AUTO 7.3 % (2.0-14.0); NEUTROPHILS ABSOLUTE AUTO 10.62 K/uL (1.40-7.00); NEUTROPHILS PERCENT AUTO 83.7 % (45.0-80.0); PLATELET COUNT,PLT 222 K/uL (150-350); RED BLOOD CELL COUNT 4.29 M/uL (4.33-5.41); RED CELL DISTRIBUTION WIDTH 16.2 % (11.2-14.1); WHITE BLOOD CELL COUNT,WBC 12.7 K/uL (4.0-10.2)
[2022-09-25 11:06] LABS: APPEARANCE,URINE SLIGHTLY CLOUDY; COLOR,URINE AMBER
[2022-09-25 11:07] LABS: BACTERIA,URINE NOT SEEN /HPF (NONE TO FEW); EPITHELIAL CELLS,URINE NOT SEEN /LPF; RBC,URINE 30-40 /HPF; WBC,URINE 0-5 /HPF
[2022-09-25 11:28] LABS: ALANINE AMINOTRANSFERASE,ALT 12 U/L (12-78); ALBUMIN 4.1 g/dL (3.4-5.0); ALKALINE PHOSPHATASE 86 IU/L (46-116); ANION GAP 13.1 meq/L (7-15); ASPARTATE AMNIOTRANSFERASE,AST 10 U/L (15-37); BILIRUBIN TOTAL 1.8 mg/dL (0.2-1.0); BLOOD UREA NITROGEN,BUN 9 mg/dL (7-18); CALCIUM 9.1 mg/dL (8.5-10.1); CARBON DIOXIDE,CO2 23.9 mmol/L (21.0-32.0); CHLORIDE,CL 102 mmol/L (98-107); CREATINE KINASE,CK 35 U/L (26-308); CREATININE 1.08 mg/dL (0.51-1.17); GLUCOSE RANDOM 145 mg/dL (70-99); POTASSIUM,K 3.8 mmol/L (3.5-5.1); PRO B-TYPE NATRIUR PEPT,BNPPRO 828 pg/mL (0-125); PROTEIN TOTAL,TP 8.1 g/dL (6.4-8.2); SODIUM,NA 139 mmol/L (136-145)
[2022-09-25 11:29] LABS: ESTIMATED GFR 71 mL/min (>=60)
[2022-09-25] MEDS ORDERED: Sodium Chloride 0.9% 500 ML IV ONE ×2 (12:30→12:34)
[2022-09-25] MEDS ORDERED: Nitroglycerin 0.4 MG Tab.SL SL PRN (12:43)
[2022-09-25] MEDS ORDERED: Non-Formulary Medication 1 Each (Naproxen Sodium [Naproxen Sodium] 220 MG Capsule) PO PRN (12:43)
[2022-09-25] MEDS ORDERED: Calcium Carbonate 750 MG Tab.Chew PO PRN (12:43)
[2022-09-25] MEDS ORDERED: Furosemide 40 MG Tab PO PRN (12:43)
[2022-09-25] MEDS: cefTRIAXone 1 GM in Sodium Chloride 0.9% 100 ML IV SCH (13:09)
[2022-09-25 13:10] LABS: INR 1.8
[2022-09-25] MEDS: Sodium Chloride 0.9% 10 ML Syringe FLUSH PRN (13:14)
[2022-09-25] MEDS: Albuterol/Ipratropium 3.0-0.5 MG/3 ML Neb Soln NEB SCH ×2 (13:19→19:22)
[2022-09-25] MEDS: Metolazone 2.5 MG Tab PO SCH (13:46)
[2022-09-25 14:26] LABS: LACTIC ACID 1.8 mmol/L (0.4-2.0)
[2022-09-25] MEDS ORDERED: VANCOmycin 2 GM/400 ML 2 GM in Premix Bag 1 BAG IV ONE (15:00)
[2022-09-25] MEDS ORDERED: Vancomycin 2 GM in Sodium Chloride 0.9% 500 ML IV ONE (15:00)
[2022-09-25] MEDS: metFORMIN 500 MG Tab PO SCH (17:06)
[2022-09-25] MEDS ORDERED: TIMOLOL EYEBOTH SCH (18:00)
[2022-09-25] MEDS ORDERED: DORZOLAMIDE EYEBOTH SCH (18:00)
[2022-09-25] MEDS ORDERED: [UNRECOGNIZED DRUG - OTHER] EYEBOTH SCH (18:00)
[2022-09-25] MEDS: atorvaSTATin 40 MG Tab PO SCH (19:22)
[2022-09-25] MEDS ORDERED: [UNRECOGNIZED DRUG - OTHER] EYEBOTH SCH (20:00)
[2022-09-26] MEDS: Albuterol/Ipratropium 3.0-0.5 MG/3 ML Neb Soln NEB SCH ×4 (02:06→19:19)
[2022-09-26] MEDS: Sodium Chloride 0.9% 10 ML Syringe FLUSH PRN ×5 (02:09→15:39)
[2022-09-26] MEDS: metFORMIN 500 MG Tab PO SCH ×2 (07:42→17:38)
[2022-09-26] MEDS: Rivaroxaban 10 MG Tab PO SCH (07:43)
[2022-09-26] MEDS: Mirabegron 25 MG Tab Extended Release PO SCH (07:43)
[2022-09-26] MEDS: Tamsulosin 0.4 MG Cap.ER PO SCH (07:43)
[2022-09-26] MEDS: Lisinopril 5 MG Tab PO SCH (07:44)
[2022-09-26] MEDS: Finasteride 5 MG Tab PO SCH (07:44)
[2022-09-26] MEDS: amLODIPine 5 MG Tab PO SCH (07:44)
[2022-09-26] MEDS: Metoprolol Succinate 50 MG Tab.ER PO SCH (07:44)
[2022-09-26 09:04] LABS: BASOPHILS ABSOLUTE AUTO 0.03 K/uL (0.00-0.20); BASOPHILS PERCENT AUTO 0.4 % (0.0-2.0); EOSINOPHILS ABSOLUTE AUTO 0.18 K/uL (0.00-0.50); EOSINOPHILS PERCENT AUTO 2.4 % (0.0-5.0); HEMATOCRIT 36.6 % (39.0-49.0); LYMPHOCYTES ABSOLUTE AUTO 1.33 K/uL (0.50-3.50); LYMPHOCYTES PERCENT AUTO 17.6 % (10.0-50.0); MEAN CORPUSCULAR HEMOGLOBIN 30.3 pg (28.2-33.3); MEAN CORPUSCULAR HGB CONC 32.8 g/dL (31.7-36.0); MEAN CORPUSCULAR VOLUME 92.4 fL (84.0-98.0); MONOCYTES PERCENT AUTO 9.3 % (2.0-14.0); NEUTROPHILS ABSOLUTE AUTO 5.31 K/uL (1.40-7.00); NEUTROPHILS PERCENT AUTO 70.3 % (45.0-80.0); PLATELET COUNT,PLT 199 K/uL (150-350); RED BLOOD CELL COUNT 3.96 M/uL (4.33-5.41); RED CELL DISTRIBUTION WIDTH 16.3 % (11.2-14.1); WHITE BLOOD CELL COUNT,WBC 7.6 K/uL (4.0-10.2)
[2022-09-26] MEDS: Metolazone 2.5 MG Tab PO SCH (12:24)
[2022-09-26] MEDS: cefTRIAXone 1 GM in Sodium Chloride 0.9% 100 ML IV SCH (12:25)
[2022-09-26] MEDS: Furosemide 40 MG Tab PO SCH ×2 (15:34→21:10)
[2022-09-26] MEDS: Timolol Maleate 0.5% Ophth Soln 5 ML Bottle EYEBOTH SCH (17:38)
[2022-09-26] MEDS: LATANOPROST EYEBOTH SCH (19:19)
[2022-09-26] MEDS: atorvaSTATin 40 MG Tab PO SCH (19:19)
[2022-09-27] MEDS: Sodium Chloride 0.9% 10 ML Syringe FLUSH PRN ×3 (02:41→14:22)
[2022-09-27] MEDS: Albuterol/Ipratropium 3.0-0.5 MG/3 ML Neb Soln NEB SCH ×4 (02:41→20:13)
[2022-09-27] MEDS: Timolol Maleate 0.5% Ophth Soln 5 ML Bottle EYEBOTH SCH ×2 (07:30→17:22)
[2022-09-27] MEDS: Tamsulosin 0.4 MG Cap.ER PO SCH (07:31)
[2022-09-27] MEDS: amLODIPine 5 MG Tab PO SCH (07:32)
[2022-09-27] MEDS: metFORMIN 500 MG Tab PO SCH ×2 (07:32→17:22)
[2022-09-27] MEDS: Lisinopril 5 MG Tab PO SCH (07:33)
[2022-09-27] MEDS: Rivaroxaban 10 MG Tab PO SCH (07:33)
[2022-09-27] MEDS: Metolazone 2.5 MG Tab PO SCH (07:34)
[2022-09-27] MEDS: Mirabegron 25 MG Tab Extended Release PO SCH (07:34)
[2022-09-27] MEDS: Finasteride 5 MG Tab PO SCH (07:34)
[2022-09-27] MEDS: Metoprolol Succinate 50 MG Tab.ER PO SCH (07:34)
[2022-09-27] MEDS: Furosemide 40 MG Tab PO SCH ×2 (07:37→14:06)
[2022-09-27 07:39] LABS: BASOPHILS ABSOLUTE AUTO 0.03 K/uL (0.00-0.20); BASOPHILS PERCENT AUTO 0.5 % (0.0-2.0); EOSINOPHILS ABSOLUTE AUTO 0.32 K/uL (0.00-0.50); EOSINOPHILS PERCENT AUTO 5.2 % (0.0-5.0); HEMATOCRIT 37.9 % (39.0-49.0); HEMOGLOBIN 12.5 g/dL (13.1-16.8); LYMPHOCYTES PERCENT AUTO 22.8 % (10.0-50.0); MEAN CORPUSCULAR HEMOGLOBIN 30.3 pg (28.2-33.3); MEAN CORPUSCULAR VOLUME 91.8 fL (84.0-98.0); MONOCYTES ABSOLUTE AUTO 0.57 K/uL (0.00-1.00); MONOCYTES PERCENT AUTO 9.3 % (2.0-14.0); NEUTROPHILS ABSOLUTE AUTO 3.81 K/uL (1.40-7.00); NEUTROPHILS PERCENT AUTO 62.2 % (45.0-80.0); PLATELET COUNT,PLT 205 K/uL (150-350); RED BLOOD CELL COUNT 4.13 M/uL (4.33-5.41); WHITE BLOOD CELL COUNT,WBC 6.1 K/uL (4.0-10.2)
[2022-09-27] MEDS: cefTRIAXone 1 GM in Sodium Chloride 0.9% 100 ML IV SCH (13:46)
[2022-09-27] MEDS: LATANOPROST EYEBOTH SCH (20:13)
[2022-09-27] MEDS: atorvaSTATin 40 MG Tab PO SCH (20:13)
[2022-09-28] MEDS: Albuterol/Ipratropium 3.0-0.5 MG/3 ML Neb Soln NEB SCH ×3 (02:51→14:03)
[2022-09-28] MEDS: Sodium Chloride 0.9% 10 ML Syringe FLUSH PRN ×3 (02:51→13:38)
[2022-09-28] MEDS: metFORMIN 500 MG Tab PO SCH (07:43)
[2022-09-28] MEDS: Mirabegron 25 MG Tab Extended Release PO SCH (07:44)
[2022-09-28] MEDS: Metolazone 2.5 MG Tab PO SCH (07:45)
[2022-09-28] MEDS: Rivaroxaban 10 MG Tab PO SCH (07:45)
[2022-09-28] MEDS: Finasteride 5 MG Tab PO SCH (07:45)
[2022-09-28] MEDS: Tamsulosin 0.4 MG Cap.ER PO SCH (07:46)
[2022-09-28] MEDS: Lisinopril 5 MG Tab PO SCH (07:49)
[2022-09-28] MEDS: Metoprolol Succinate 50 MG Tab.ER PO SCH (07:49)
[2022-09-28 07:50] LABS: BASOPHILS ABSOLUTE AUTO 0.03 K/uL (0.00-0.20); BASOPHILS PERCENT AUTO 0.5 % (0.0-2.0); EOSINOPHILS PERCENT AUTO 6.1 % (0.0-5.0); HEMATOCRIT 40.4 % (39.0-49.0); HEMOGLOBIN 13.2 g/dL (13.1-16.8); LYMPHOCYTES ABSOLUTE AUTO 1.49 K/uL (0.50-3.50); LYMPHOCYTES PERCENT AUTO 22.7 % (10.0-50.0); MEAN CORPUSCULAR HEMOGLOBIN 29.7 pg (28.2-33.3); MEAN CORPUSCULAR HGB CONC 32.7 g/dL (31.7-36.0); MEAN CORPUSCULAR VOLUME 90.8 fL (84.0-98.0); MONOCYTES ABSOLUTE AUTO 0.68 K/uL (0.00-1.00); MONOCYTES PERCENT AUTO 10.4 % (2.0-14.0); NEUTROPHILS ABSOLUTE AUTO 3.95 K/uL (1.40-7.00); NEUTROPHILS PERCENT AUTO 60.3 % (45.0-80.0); PLATELET COUNT,PLT 238 K/uL (150-350); RED BLOOD CELL COUNT 4.45 M/uL (4.33-5.41); WHITE BLOOD CELL COUNT,WBC 6.6 K/uL (4.0-10.2)
[2022-09-28] MEDS: amLODIPine 5 MG Tab PO SCH (07:50)
[2022-09-28] MEDS: Furosemide 40 MG Tab PO SCH ×2 (07:56→14:03)
[2022-09-28] MEDS: Timolol Maleate 0.5% Ophth Soln 5 ML Bottle EYEBOTH SCH (07:56)
[2022-09-28] MEDS: cefTRIAXone 1 GM in Sodium Chloride 0.9% 100 ML IV SCH (13:06)
[2022-09-28 16:15] VITALS: BP 125/60; PULSE 89
[2022-09-28] MEDS ORDERED: Non-Formulary Medication 1 Each (Dulaglutide [Trulicity] 1.5 MG/0.5 ML Pen) SQ SCH (21:00)
== END 2022-09-28 15:00 | disposition home or self-care (01) | DRG 871 ==
LOC: LL.ED 10:34 → LL.MS 12:25
PROVIDERS: ADMIT Emergency Medicine; ATTEND Emergency Medicine
DX: A41.9 Sepsis, unspecified organism (principal); I50.41 Acute combined systolic (congestive) and diastolic (congestive) heart failure; J18.1 Lobar pneumonia, unspecified organism; J44.9 Chronic obstructive pulmonary disease, unspecified; I13.0 Hypertensive heart and chronic kidney disease with heart failure and stage 1 through stage 4 chronic kidney disease, or unspecified chronic kidney disease; J44.0 Chronic obstructive pulmonary disease with (acute) lower respiratory infection; I12.9 Hypertensive chronic kidney disease with stage 1 through stage 4 chronic kidney disease, or unspecified chronic kidney disease; E66.01 Morbid (severe) obesity due to excess calories; H54.7 Unspecified visual loss; I25.10 Atherosclerotic heart disease of native coronary artery without angina pectoris; N18.9 Chronic kidney disease, unspecified; K21.9 Gastro-esophageal reflux disease without esophagitis; Z79.01 Long term (current) use of anticoagulants; R33.8 Other retention of urine; N40.1 Benign prostatic hyperplasia with lower urinary tract symptoms; E11.22 Type 2 diabetes mellitus with diabetic chronic kidney disease; H40.9 Unspecified glaucoma; E11.21 Type 2 diabetes mellitus with diabetic nephropathy; I48.91 Unspecified atrial fibrillation; M54.9 Dorsalgia, unspecified; M54.2 Cervicalgia; G89.29 Other chronic pain; E11.42 Type 2 diabetes mellitus with diabetic polyneuropathy; E78.5 Hyperlipidemia, unspecified; Z79.84 Long term (current) use of oral hypoglycemic drugs; Z95.5 Presence of coronary angioplasty implant and graft; Z79.899 Other long term (current) drug therapy; I25.2 Old myocardial infarction; Z98.49 Cataract extraction status, unspecified eye; Z98.890 Other specified postprocedural states
CPT/HCPCS: 36415; 36416; 71045; 80053; 80202; 81001; 82550; 82947; 83605; 83690; 83880; 84484; 85025; 85379; 85610; 87040; 93005; 93010; 94640; 97161-GP; 99223; 99232; 99233; 99238; 99285; A9270-GY; J0696; J3370; J3490; J7030; J7050; J7620-GY

== ENCOUNTER 2023-09-13 10:20 | Emergency (ER) | payer MEDICARE ==
[2023-09-13] MEDS ORDERED: Sodium Chloride 0.9% 10 ML Syringe FLUSH PRN (10:38)
[2023-09-13] MEDS: Albuterol/Ipratropium 3.0-0.5 MG/3 ML Neb Soln NEB ONE ×3 (10:49→13:03)
[2023-09-13] MEDS: Furosemide 40 MG/4 ML VIAL IVPUSH ONE (10:53)
[2023-09-13 11:07] LABS: ALANINE AMINOTRANSFERASE,ALT 17 U/L (12-78); ALBUMIN 3.9 g/dL (3.4-5.0); ALKALINE PHOSPHATASE 112 IU/L (46-116); ASPARTATE AMNIOTRANSFERASE,AST 13 U/L (15-37); BILIRUBIN TOTAL 2.1 mg/dL (0.2-1.0); BLOOD UREA NITROGEN,BUN 9 mg/dL (7-18); CALCIUM 8.7 mg/dL (8.5-10.1); CHLORIDE,CL 96 mmol/L (98-107); CREATININE 0.87 mg/dL (0.51-1.17); ESTIMATED GFR 89 mL/min (>=60); GLUCOSE RANDOM 187 mg/dL (70-99); MAGNESIUM 1.5 mg/dL (1.8-2.4); PRO B-TYPE NATRIUR PEPT,BNPPRO 832 pg/mL (0-125); PROTEIN TOTAL,TP 7.8 g/dL (6.4-8.2); SODIUM,NA 134 mmol/L (136-145)
[2023-09-13 11:09] LABS: EOSINOPHILS PERCENT AUTO 0.9 % (0.0-5.0); HEMATOCRIT 37.1 % (39.0-49.0); HEMOGLOBIN 12.1 g/dL (13.1-16.8); LYMPHOCYTES PERCENT AUTO 6.7 % (10.0-50.0); MEAN CORPUSCULAR HEMOGLOBIN 29.5 pg (28.2-33.3); MEAN CORPUSCULAR HGB CONC 32.6 g/dL (31.7-36.0); MEAN CORPUSCULAR VOLUME 90.5 fL (84.0-98.0); MONOCYTES PERCENT AUTO 5.3 % (2.0-14.0); NEUTROPHILS PERCENT AUTO 86.9 % (45.0-80.0); PLATELET COUNT,PLT 216 K/uL (150-350); RED CELL DISTRIBUTION WIDTH 16.8 % (11.2-14.1); WHITE BLOOD CELL COUNT,WBC 11.7 K/uL (4.0-10.2)
[2023-09-13 11:10] LABS: BASOPHILS ABSOLUTE AUTO 0.02 K/uL (0.00-0.20); BASOPHILS PERCENT AUTO 0.2 % (0.0-2.0); EOSINOPHILS ABSOLUTE AUTO 0.11 K/uL (0.00-0.50); LYMPHOCYTES ABSOLUTE AUTO 0.78 K/uL (0.50-3.50); MONOCYTES ABSOLUTE AUTO 0.62 K/uL (0.00-1.00); NEUTROPHILS ABSOLUTE AUTO 10.13 K/uL (1.40-7.00)
[2023-09-13 11:12] LABS: ANION GAP 14.7 meq/L (7-15); POTASSIUM,K 2.7 mmol/L (3.5-5.1)
[2023-09-13 11:27] LABS: CORONAVIRUS COVID-19 NAA NEGATIVE (NEGATIVE); INFLUENZA A NAA NEGATIVE (NEGATIVE)
[2023-09-13 11:28] LABS: INFLUENZA B NAA NEGATIVE (NEGATIVE); RESPIRATORY SYNCYTIAL VIR NAA NEGATIVE (NEGATIVE)
[2023-09-13] MEDS: Potassium Chloride 20 MEQ Tab.ER PO ONE (11:31)
[2023-09-13] MEDS: Magnesium Sulfate/Water 2 GM in Premix Bag 1 BAG IV ONE (11:33)
[2023-09-13] MEDS: Potassium Chloride Riders 10 MEQ in Premix Bag 1 BAG IV ONE (11:39)
[2023-09-13] MEDS: Sodium Chloride 0.9% 500 ML IV SCH (11:39)
[2023-09-13 12:45] LABS: HCO3 VENOUS,POC 25 mmol/L (23-28); O2 SATURATION VENOUS,POC 47 %; PCO2 VENOUS,POC 39 mmHg (41-51); PH VENOUS,POC 7.42 (7.31-7.41); PO2 VENOUS,POC 25 mmHg
[2023-09-13] MEDS: Potassium Chloride 10 MEQ Tab.ER PO ONE (12:59)
[2023-09-13] MEDS: methylPREDNISolone Sodium Succinate 125 MG/2 ML SDV IVPUSH ONE (13:02)
[2023-09-13] MEDS ORDERED: Potassium Bicarbonate/Cit Ac 20 MEQ Effervescent Tab PO ONE (14:02)
== END 2023-09-13 14:05 ==
LOC: LL.ED 10:20
DX: J44.1 Chronic obstructive pulmonary disease with (acute) exacerbation (principal); E87.6 Hypokalemia; E83.42 Hypomagnesemia; I50.9 Heart failure, unspecified; I13.0 Hypertensive heart and chronic kidney disease with heart failure and stage 1 through stage 4 chronic kidney disease, or unspecified chronic kidney disease; N18.9 Chronic kidney disease, unspecified; E11.40 Type 2 diabetes mellitus with diabetic neuropathy, unspecified; E11.22 Type 2 diabetes mellitus with diabetic chronic kidney disease; I48.91 Unspecified atrial fibrillation; I25.10 Atherosclerotic heart disease of native coronary artery without angina pectoris; K21.9 Gastro-esophageal reflux disease without esophagitis; Z79.899 Other long term (current) drug therapy; Z79.84 Long term (current) use of oral hypoglycemic drugs; Z79.01 Long term (current) use of anticoagulants
CPT/HCPCS: 0241U; 36415; 71045; 80053; 82803; 83605; 83735; 83880; 84484; 85025; 85379; 93005; 94640; 96365; 96366; 96368; 96375; 99285-25; A9270-GY; J1940; J2930; J3475; J3480; J7040; J7620-GY